=== PATIENT | male | born 1945 | race Caucasian/White ===

== ENCOUNTER 2017-09-26 23:19 | Inpatient (IN) | payer OTHER ==
[~2017-09-26] VITALS: Ht 177.8 cm; Wt 95.3 kg
[~2017-09-26 23:19] MED LIST: ACETAMINOPHEN325 M1 PO; AUGMENTIN 875875 MG PO; BACTRIM 400-801 EACH PO; CEFTIN 250 MG250 MG PO; CEFTIN500 MG PO; CENTRUM SILVER1 EAC2 PO; CIPRO500 M1 PO; CIPRO500 MG PO; CIPROFLOXACIN500 M1 PO; COZAAR 50 MG TA50 M1 PO; COZAAR100 MG PO; ENOXAPARIN40 MG/0.1 SUBQ; FEROSUL220 MG/5 M PO; FERROUS SULFATE PO; FLUCONAZOLE 10100 MG PO; GARLIC OIL1 EACH PO; GLUCOPHAGE1000 MG PO; IRON325 PO; KEFLEX500 MG PO; LANTUS SOL100 UNIT/1 SUBQ; LEVEMIR SUBQ; LOPRESSOR25 PO; METFORMIN HCL500 MG PO; METOCLOPRAM5 MG/5 ML PO; MULTIVITAMIN PO; NEPHROCAPS SOFT1 CAP PO; NOVOLOG100 UNIT/1; NOVOLOG100 UNIT/1 SUBQ; PREVACID 15 MG15 M4 PO; SODIUM BICARBO650 M3 PO; VITAMIN D1000 UNI1 PO; VITAMINC500 PO; ZYVOX600 MG PO
[2017-09-26 23:21] VITALS: BP 140/75
[2017-09-26 23:44] LABS: ABSOLUTE BASOPHILS 0.1 thou/uL (0.0-0.2); ABSOLUTE EOSINOPHILS 0.4 thou/uL (0.0-0.7); ABSOLUTE LYMPHOCYTES 1.4 thou/uL (0.8-5.3); ABSOLUTE MONOCYTES 0.5 thou/uL (0.0-1.2); ABSOLUTE NEUTROPHILS 4.2 thou/uL (1.6-8.1); EOSINOPHILS 6.4 %; HEMATOCRIT 30.7 % (42.0-52.0); LYMPHOCYTES 21.3 %; MCH 27.9 pg (26.0-34.0); MCHC 32.4 g/dL (28.0-37.0); MCV 86.2 fL (80.0-100.0); MONOCYTES 7.8 %; MPV 8.2 fl. (7.2-11.1); NUCLEATED RBCS 0 /100WBC; PLATELET COUNT* 245 thou/uL (150-400); POLYS 63.5 %; RBC 3.57 mil/uL (4.50-6.00); RDW-CV 12.6 % (10.5-14.5); WBC 6.6 thou/uL (4.0-11.0)
[2017-09-26 23:53] LABS: ANION GAP 9 mmol/L (7-16); BUN 53 mg/dL (7-18); CALCIUM 8.5 mg/dL (8.5-10.1); CHLORIDE 104 mmol/L (98-107); CO2 26 mmol/L (21-32); CREATININE 3.6 mg/dL (0.6-1.3); GLUCOSE 142 mg/dL (70-99); POTASSIUM 4.2 mmol/L (3.5-5.1); SODIUM 139 mmol/L (136-145)
[2017-09-27 00:04] LABS: ALBUMIN 3.7 g/dL (3.4-5.0); ALKALINE PHOSPHATASE 54 U/L (46-116); NT-PRO BRAIN NAT PEPTIDE 1133 pg/mL (<300); SGOT 8 U/L (15-37); SGPT 13 U/L (30-65); TOTAL BILIRUBIN 0.4 mg/dL (<0.1-1.0); TOTAL PROTEIN 7.4 g/dL (6.4-8.2); TROPONIN-I LEVEL <0.06 ng/mL (<0.06)
[2017-09-27 00:14] LABS: URINE BILIRUBIN NEGATIVE (Negative); URINE BLOOD 2+ (Negative); URINE CLARITY SL CLOUDY; URINE COLOR YELLOW; URINE GLUCOSE-RANDOM NEGATIVE (Negative); URINE KETONES NEGATIVE (Negative); URINE LEUKOCYTES-REFLEX 3+ (Negative); URINE NITRITE-REFLEX POSITIVE (Negative); URINE PROTEIN 2+ (Negative); URINE SPECIFIC GRAVITY 1.015 (1.005-1.030); URINE UROBILINOGEN 0.2 E.U./dl (0.2-1.0)
[2017-09-27 00:30] LABS: BACTERIA-REFLEX >30 Many /HPF (None Seen); CASTS None Seen /LPF (None Seen); CRYSTALS None Seen /LPF (None Seen); MUCUS 4-6 Moderate strn/LPF (None Seen); SQUAMOUS 0-3 Few /LPF (0-3); URINE WBC-REFLEX >25 Many /HPF (0-5); WBC CLUMPS Moderate (None Seen)
[2017-09-27 02:15] VITALS: BP 121/69
[2017-09-27 06:21] VITALS: BP 132/69
[2017-09-27 09:40] VITALS: BP 135/56
[2017-09-27 09:55] VITALS: BP 134/66
--- NOTE | 2017-09-27 10:00 | NUR ---
RECEIVED REPORT. PT TRANSFERRED TO ROOM 106 VIA BED. VSS. ADMISISON HISTORY AND ASSESSMENT COMPELTED CHARTED. PT ALERT AND ORIENTED X4. PT ON RA. IVF INFUSING PER ORDERS. PT DENIES ANY COMPLAINTS OF PIAN OR DISCOMFORT. PT ORIETNED TO ROOM AND CALL LIGHT. UROSTOMY IN PLACE TO DEPENDANT DRAINAGE. FALL RISK FORM SIGNED. CALL LIGHT IS WITHIN REACH. WILL CONTINUE TO MONITOR.
--- NOTE | 2017-09-27 14:50 | EKG ---
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1945 Requested By: Alondra Berrios Order Number: [id number] MD: Doe Gutiérrez Measurements Intervals [place] Rate: 76 P: 57 KS: 146 QRS: 15 QRSD: 89 T: 41 QT: 388 QTc: 437 Interpretive Statements Sinus rhythm Ventricular premature complex Probable left atrial enlargement Compared to ECG 05/25/2016 09:07:44 Ventricular premature complex(es) now present Left ventricular hypertrophy no longer present Early repolarization no longer present Electronically Signed On 09-27-2017 14:50:02 CDT by Doe Gutiérrez [email or web address] <ELECTRONICALLY SIGNED> By: Doe Gutiérrez MD, FACC 09/27/17 1450 [id number] Doe Gutiérrez MD, [facility] /EPI
[2017-09-27 16:00] VITALS: BP 147/63
--- NOTE | 2017-09-27 17:10 | NUR ---
MRI RESULTS GIVEN TO DR. BERTRAND AND DR. SPARKS. ORDERS RECEIVED TO START TELEMETRY, GIVE 325 ASPIRIN, LIPID PROFILE, ECHO, AND STAT MRA OF HEAD AND NECK. PT UPDATED ON PLAN OF CARE. NIH AND BEDSIDE SWALLOW STUDY COMPLETED CHARTED. PT'S PERSONAL BELONGINGS GATHERED AND SENT TO ROOM 218. REPORT GIVEN.
--- NOTE | 2017-09-27 17:44 | NUR ---
ASSUMED CARE OF PATIENT AT 1715 AFTER TRANSFER TO ROOM 218 FROM [facility]. PATIENT AWAKE, ALERT, AND ORIENTED APPROPRIATELY. THIS NURSE AGREES WITH ASSESSMENT CHARTED BY PREVIOUS NURSE. NIH = 0. MRA RESULTS CALLED TO DR. SPARKS. NO NEW ORDERS RECEIVED. PATIENT IS TO TRANSFER AND AMBULATE WITH ASSISTANCE FROM STAFF. USES CALL LIGHT APPROPRIATELY. DENIES NEEDS AT THIS TIME. CALL LIGHT WITHIN REACH. NURSING WILL CONTINUE TO MONITOR.
[2017-09-27 19:35] VITALS: BP 109/61
[2017-09-28 00:32] VITALS: BP 131/65
[2017-09-28 03:50] VITALS: BP 146/69
--- NOTE | 2017-09-28 04:46 | NUR ---
END SHIFT: PT RESTED WELL. NO COMPLAINTS- NO PAIN. NSR WITH PVC'S NOTED ON MONITOR. NIH IS 0. IVF INFUSING WITHOUT DIFFICUTLY. UROSTOMY BAG DRAINING WELL. VSS. ASSESSMENT UNCHANGED. SAFETY PRECAUTIONS IN PLACE. CALL LIGHT IN REACH. PERFORMED HOURLY ROUNDING. WILL CONT TO MONITOR.
[2017-09-28 04:59] LABS: HEMATOCRIT 28.6 % (42.0-52.0); HEMOGLOBIN 9.4 gm/dL (14.0-18.0); MCH 28.1 pg (26.0-34.0); MCHC 32.8 g/dL (28.0-37.0); MCV 85.7 fL (80.0-100.0); MPV 8.1 fl. (7.2-11.1); RBC 3.33 mil/uL (4.50-6.00); RDW-CV 12.5 % (10.5-14.5); WBC 6.2 thou/uL (4.0-11.0)
[2017-09-28 05:08] LABS: ALBUMIN 3.2 g/dL (3.4-5.0); ALKALINE PHOSPHATASE 43 U/L (46-116); ANION GAP 8 mmol/L (7-16); BUN 40 mg/dL (7-18); CALCIUM 8.1 mg/dL (8.5-10.1); CHLORIDE 109 mmol/L (98-107); CHOLESTEROL 159 mg/dL (<200); CO2 26 mmol/L (21-32); CREATININE 3.5 mg/dL (0.6-1.3); GLUCOSE 96 mg/dL (70-99); HDL CHOLESTEROL 37 mg/dL (>40); LDL CHOLESTEROL 101 mg/dL (<100); MAGNESIUM 2.6 mg/dL (1.8-2.4); POTASSIUM 4.3 mmol/L (3.5-5.1); SGOT 11 U/L (15-37); SGPT 15 U/L (30-65); SODIUM 143 mmol/L (136-145); TC:HDL 4.3 Ratio (Not establshd); TOTAL BILIRUBIN 0.4 mg/dL (<0.1-1.0); TOTAL PROTEIN 6.2 g/dL (6.4-8.2); TRIGLYCERIDE 106 mg/dL (<150); VLDL 21 mg/dL (<40)
[2017-09-28 05:18] LABS: SERUM ASSESSMENT Clear
[2017-09-28 08:15] VITALS: BP 158/67
--- NOTE | 2017-09-28 08:30 | NUR ---
RECEIVED REPORT. ASSUMED CARE OF PT AT 0730. VSS. CARDIAC MONITORING IN PLACE SR. AM ASSESSMENT AND VITALS COMPLETED CHARTED. PT ALERT AND ORIENTED X4. PT ON RA. IVF INFUSING PER ORDERS. PT DENIES ANY COMPLAINTS OF PAIN OR DISCOMFORT THIS AM. NIH COMPLETED CHARTED. UROSTOMY BAG IN PLACE TO DEPENDANT DRAINAGE. PT INFORMED OF PLAN OF CARE. PT HAS APPREHENSIONS OF TAKING MEDICATIONS PER HIS OWN PERSONAL THEORIES. PT PROVIDED WITH EDUCATION REGARDING ASPIRIN FOR STROKE PREVENTION. PT REPORTS WANTING TO DISCHARGE TODAY. INFORMED PT OF PLAN OF CARE PT COMMUNICATES UNDERSTANDING. CALL LIGHT IS WITHIN REACH. WILL CONTINUE TO MONITOR FOR DURATION OF SHIFT.
[2017-09-28 12:04] VITALS: BP 169/71
[2017-09-28] MEDS ORDERED: ASPIRIN325 PO (12:20)
[2017-09-28] MEDS ORDERED: CIPRO500 M1 PO (12:20)
[2017-09-28 12:24] VITALS: BP 169/71
[2017-09-28] MEDS ORDERED: CEFUROXIME500 MG PO (13:24)
--- NOTE | 2017-09-28 13:41 | NUR ---
DISCHARGE ORDERS RECEIVED AND PREPARED. IV AND CARDIAC MONITORING DISCONTINUED. PT AND SPOUSE EDUCATED ON DISCHARGE INSTRUCTIONS. ALL QUESTIONS AND CONCNERNS ANSWERED AT THIS TIME. PT GIVEN COPY OF DISCHARGE PAPERWORK AND STROKE EDUCAITON MATERIAL. SCRIPT CALLED INTO PT'S PHARMACY. PT AMBULATED OFF UNIT WITH NURSING STAFF. PT LEFT IN PRIVATE VEHICLE.
--- NOTE | 2017-09-28 17:57 | 2DMMODE ---
[place] [address] 2 D/M-MODE ECHOCARDIOGRAM Name: COTORILEY ZULMA Room: [address] IN [facility]#: [id number] Admission: 09/27/17 Attend Phys: Rasheed Kasper, Discharge: 09/28/17 Date of : 41 Date of Service: 09/28/17 1756 Report #: [id number] THIS REPORT FOR: //name// APPROVED REPORT Study performed: 09/28/2017 10:19:18 EXAM: Comprehensive 2D, Doppler, and color-flow Echocardiogram Patient Location: In-Patient Room #: 218 Status: routine BSA: 2.13 HR: 64 bpm BP: 158/67 mmHg Rhythm: NSR Other Information Study Quality: Good Indications CVA/TIA Echo Enhancing Agent Indication: Rule out Shunt Agent(s) / Amount(s) Used: Agitated Saline 10 cc 2D Dimensions LVEF(%): 60.77 (>50%) IVSd: 14.51 (7-11mm) LVOT Diam: 22.47 (18-24mm) LVDd: 40.61 mm PWd: 11.81 (7-11mm) Ascending Ao: 35.92 (22-36mm) LVDs: 27.58 (25-40mm) Aortic Root: 33.08 mm Connors's LVEF: 60.77 % Volumes Left Atrial Volume (Systole) LA ESV Index: 36.60 mL/m2 Aortic Valve AoV Peak Ovi.: 1.41 m/s AO Peak Gr.: 7.90 mmHg LVOT Max P.07 mmHg AO Mean Gr.: 4.05 mmHg LVOT Mean P.41 mmHg LVOT Max V: 0.88 m/s AO V2 VTI: 28.70 cm LVOT Mean V: 0.54 m/[place] [address] 2 D/M-MODE ECHOCARDIOGRAM Name: CHICARILEY MIKE Room: [address] IN .R.#: [id number] Admission: 09/27/17 Attend Phys: Rasheed Kasper, Discharge: 09/28/17 Date of : 41 Date of Service: 09/28/17 1756 Report #: [id number] LEIGH (VTI): 2.59 cm2 LVOT V1 VTI: 18.77 cm Mitral Valve E/A Ratio: 0.76 MV Decel. Time: 198.91 ms MV E Max Ovi.: 0.93 m/s MV PHT: 57.68 ms MVA (PHT): 3.81 cm2 TDI E/Lateral E': 6.64 E/Medial E': 10.33 Medial E' Ovi.: 0.09 m/s Lateral E' Ovi.: 0.14 m/s Pulmonary Valve PV Peak Ovi.: 0.98 m/s PV Peak Gr.: 3.86 mmHg Tricuspid Valve TR Peak Gr.: 24.19 mmHg RVSP: 29.00 mmHg Left Ventricle The left ventricle is normal size. There is normal LV segmental wall motion. Mild concentric left ventricular hypertrophy. Left ventricular systolic function is normal. The left ventricular ejection fraction is within the normal range. LVEF is 55-60%. Grade I - abnormal relaxation pattern. Right Ventricle The right ventricle is normal size. The right ventricular systolic function is normal. Atria Left atrium is mildly dilated. Interatrial septum is intact without evidence of ASD or PFO. The right atrium size is normal. Aortic Valve Mild aortic valve sclerosis. No aortic regurgitation is present. There is no aortic valvular stenosis. Mitral Valve There is mitral annular calcification. Mild mitral regurgitation. No evidence of mitral valve stenosis. Tricuspid Valve The tricuspid valve is normal in structure. Mild tricuspid regurgitation. The RVSP is 35_ [place] [address] 2 D/M-MODE ECHOCARDIOGRAM Name: CHICARILEY ZULMA Room: [address] IN M.R.#: [id number] Admission: 09/27/17 Attend Phys: Rasheed Kasper, Discharge: 09/28/17 Date of : 41 Date of Service: 09/28/17 1756 Report #: [id number] Pulmonic Valve The pulmonary valve is normal in structure. Trace pulmonic regurgitation. Great Vessels The aortic root is normal in size. The inferior vena cava is not well visualized. Pericardium There is no pericardial effusion. <Conclusion> Interatrial septum is intact without evidence of ASD or PFO. Mild concentric left ventricular hypertrophy. LVEF is 55-60%. Left atrium is mildly dilated. Mild aortic valve sclerosis. Mild mitral regurgitation. <ELECTRONICALLY SIGNED> By: Nick Delaney MD, FACC 09/28/171755 55 55 Nick Delaney MD, FACC /INF
--- NOTE | 2017-10-04 13:48 | CON ---
[address] [address] CONSULTATION Name: COTORILEY ZULMA Room: [address] IN M.R.#: [id number] Admission: 09/27/17 Attend Phys: Rasheed Kasper MD Discharge: 09/28/17 Date of : 41 Report #: [id number] THIS REPORT FOR: //name// CC: Rasheed ALMEIDA Physician staff DATE OF SERVICE: 09/27/2017 HISTORY OF PRESENT ILLNESS: This is a 71-year-old male patient who was evaluated for a stroke. The patient provides some history and I talked to the nurses looking after this patient and reviewed the notes. He is having weakness for several days, but duration may be as long as 2 weeks. He indicates that it has become worse. He described it as severe. It may be somewhat worse with movement of the neck. It happened spontaneously without any trauma. REVIEW OF SYSTEMS: Indicate that he gets his cholesterol checked every 3 months. He has somewhat of an unusual theory that cholesterol is not the cause of the problem, but the calcium is. He indicates he has done a lot of research on the Internet on that. He also takes multiple diet supplements. He has some neuropathy, which has caused him problem and he has been taking multiple diet supplements since then. He indicated that once he had a prostate surgery, he had some complication from that and he was in coma for 2 months. He believes he has suffered some neuropathy from that. He thinks his numbness is better, but is not as good as it would like to be. He also indicate that he recently had a urinary tract infection. He had this kind of dizziness before. He has taken some medication, but not on a regular basis. He had coronary artery disease and angioplasty in the past. He had eye surgery in the past. He does have a history of diabetes as per record. I carried out 14-point review of system with this patient and this was his relevant 14-point review of system. He does have some other history that he takes things in unusual fashion. He sometime tried to induce ketoacidosis. This was his relevant 14-point review of systems. PAST MEDICAL HISTORY: According to him is negative for stroke. FAMILY HISTORY: Negative for early age stroke. SOCIAL HISTORY: He does multiple things which I have summarized above. He is a former smoker, but does not drink any alcohol on a regular basis. PHYSICAL EXAMINATION: Indicate that the patient is alert, responsive. His speech, concentration, fund of knowledge and memory is at his baseline. His cranial nerve examination 2-12 looks unremarkable. His strength, sensation, reflexes and tone is symmetrical. He has no cerebellar sign. There is no meningeal sign. There is no carotid bruit. I could not look at the patient's fundus. He is a well-built karlos who does not have [place] [address] CONSULTATION Name: RILEY COTO Room: [address] IN .R.#: [id number] Admission: 09/27/17 Attend Phys: Rasheed Kasper MD Discharge: 09/28/17 Date of : 41 Report #: [id number] eyes, ears and face. His vision and hearing looks adequate. He has no thyroid mass. His pulses are difficult to feel, but that is his baseline. He does not have any edema, cyanosis or jaundice. His heart examination is unremarkable. He has no respiratory difficulty or rhonchi. Blood pressure is 147/63, respirations 16, pulse 71, temperature is 98.8. LABORATORY DATA: His white count is 6.6. His creatinine is 3.6. His GFR is only 17. He did have an MRI of the brain and that was reviewed and did have a small stroke. Vitamin B12 and TSH is normal. IMPRESSION: This patient's clinical presentation is consistent with a cerebrovascular accident, which is demonstrated on MRI. That is a brainstem cerebrovascular accident, which can cause dizziness. His rest of the workup looks mostly unremarkable. He also has a neuropathy, but that is old. His cholesterol has been ordered, we will see what that shows, but he has his own theory, so I am not sure whether he will take it or not, we can talk to him tomorrow. RECOMMENDATION: 1. He is already on aspirin. 2. He is not sure about statin and he really does not want to do that because he has his own theory, but we will talk to him. He is stable, but I do not think anything else needs to be done at this stage. We will just see what the echocardiogram show and get him evaluated by PT, OT tomorrow and see how he does with it. That consultation has already put in. <ELECTRONICALLY SIGNED> By: Kaleb Hoang MD 10/04/17 1348 [id number] Hoang MD /nt
== END 2017-09-28 14:09 | disposition home or self-care (01) | DRG 65 ==
LOC: M.ERS 23:19 → M.ORTHSURG 09-27 00:51 → M.TBA-ER 09-27 00:51 → M.ORTHSURG 09-27 09:53 → M.2W 09-27 17:14
PROVIDERS: Emergency Medicine; Internal Medicine; ADMIT Internal Medicine
DX: I63.9 Cerebral infarction, unspecified (principal); N39.0 Urinary tract infection, site not specified; I12.0 Hypertensive chronic kidney disease with stage 5 chronic kidney disease or end stage renal disease; N18.5 Chronic kidney disease, stage 5; G62.9 Polyneuropathy, unspecified; I25.10 Atherosclerotic heart disease of native coronary artery without angina pectoris; E11.22 Type 2 diabetes mellitus with diabetic chronic kidney disease; Z90.79 Acquired absence of other genital organ(s); Z95.1 Presence of aortocoronary bypass graft; Z90.49 Acquired absence of other specified parts of digestive tract; Z85.46 Personal history of malignant neoplasm of prostate; Z98.61 Coronary angioplasty status; Z79.899 Other long term (current) drug therapy; Z79.4 Long term (current) use of insulin; Z88.2 Allergy status to sulfonamides; Z88.8 Allergy status to other drugs, medicaments and biological substances; Z87.891 Personal history of nicotine dependence

== ENCOUNTER 2017-10-13 11:38 | Emergency (ER) | payer OTHER ==
[~2017-10-13] VITALS: Ht 180.3 cm; Wt 88.5 kg
[~2017-10-13 11:38] MED LIST changes: +ASPIRIN325 PO; +CEFUROXIME500 MG PO
[2017-10-13 12:16] LABS: ABSOLUTE BASOPHILS 0.1 thou/uL (0.0-0.2); ABSOLUTE EOSINOPHILS 0.5 thou/uL (0.0-0.7); ABSOLUTE LYMPHOCYTES 1.2 thou/uL (0.8-5.3); ABSOLUTE MONOCYTES 0.6 thou/uL (0.0-1.2); ABSOLUTE NEUTROPHILS 4.2 thou/uL (1.6-8.1); BASOPHILS 1.5 %; EOSINOPHILS 8.2 %; HEMATOCRIT 30.7 % (42.0-52.0); LYMPHOCYTES 18.2 %; MCH 27.8 pg (26.0-34.0); MCHC 32.7 g/dL (28.0-37.0); MCV 85.1 fL (80.0-100.0); MONOCYTES 8.8 %; MPV 7.7 fl. (7.2-11.1); NUCLEATED RBCS 0 /100WBC; PLATELET COUNT* 263 thou/uL (150-400); POLYS 63.3 %; RBC 3.61 mil/uL (4.50-6.00); RDW-CV 12.7 % (10.5-14.5); WBC 6.6 thou/uL (4.0-11.0)
[2017-10-13 12:23] LABS: CREATININE 3.2 mg/dL (0.6-1.3); POTASSIUM 4.7 mmol/L (3.5-5.1)
[2017-10-13 12:28] LABS: ALBUMIN 3.5 g/dL (3.4-5.0); TOTAL BILIRUBIN 0.3 mg/dL (<0.1-1.0); TOTAL PROTEIN 7.3 g/dL (6.4-8.2)
[2017-10-13 13:13] LABS: URINE BILIRUBIN NEGATIVE (Negative); URINE BLOOD 3+ (Negative); URINE CLARITY CLEAR; URINE COLOR YELLOW; URINE GLUCOSE-RANDOM NEGATIVE (Negative); URINE KETONES NEGATIVE (Negative); URINE PROTEIN 2+ (Negative); URINE SPECIFIC GRAVITY 1.015 (1.005-1.030); URINE UROBILINOGEN 0.2 E.U./dl (0.2-1.0)
[2017-10-13 13:16] LABS: URINE LEUKOCYTES-REFLEX 3+ (Negative); URINE NITRITE-REFLEX POSITIVE (Negative)
[2017-10-13 13:26] LABS: BACTERIA-REFLEX 1-9 Few /HPF (None Seen); CASTS None Seen /LPF (None Seen); MUCUS None Seen strn/LPF (None Seen); SQUAMOUS 0-3 Few /LPF (0-3); URINE RBC >20 Many /HPF (0-2); URINE WBC-REFLEX 6-15 Few /HPF (0-5)
[2017-10-13 13:27] LABS: CRYSTALS None Seen /LPF (None Seen)
[2017-10-13 13:47] VITALS: BP 146/94
== END 2017-10-13 13:48 | disposition home or self-care (01) ==
LOC: M.ERS 11:38
PROVIDERS: Emergency Medicine
DX: R31.9 Hematuria, unspecified (principal); E11.9 Type 2 diabetes mellitus without complications; Z95.5 Presence of coronary angioplasty implant and graft; Z88.1 Allergy status to other antibiotic agents; Z88.8 Allergy status to other drugs, medicaments and biological substances; Z85.46 Personal history of malignant neoplasm of prostate; Z90.49 Acquired absence of other specified parts of digestive tract

== ENCOUNTER 2018-01-04 11:13 | Emergency (ER) | payer OTHER ==
[~2018-01-04] VITALS: Ht 177.8 cm; Wt 86.2 kg
[2018-01-04] MEDS ORDERED: AMLODIPINE BESY10 MG PO (11:28)
[2018-01-04] MEDS ORDERED: SODIUM BICARBO650 M3 PO (11:28)
[2018-01-04 11:50] LABS: URINE BILIRUBIN NEGATIVE (Negative); URINE BLOOD 3+ (Negative); URINE CLARITY SL CLOUDY; URINE COLOR STRAW; URINE GLUCOSE-RANDOM NEGATIVE (Negative); URINE KETONES NEGATIVE (Negative); URINE NITRITE-REFLEX NEGATIVE (Negative); URINE PROTEIN 2+ (Negative); URINE SPECIFIC GRAVITY 1.015 (1.005-1.030); URINE UROBILINOGEN 0.2 E.U./dl (0.2-1.0)
[2018-01-04 11:53] LABS: URINE LEUKOCYTES-REFLEX 3+ (Negative)
[2018-01-04] MEDS ORDERED: KEFLEX500 M1 PO (12:11)
[2018-01-04 12:12] LABS: SQUAMOUS NONE SEEN /LPF (0-3); URINE RBC >20 Many /HPF (0-2); URINE WBC-REFLEX >25 Many /HPF (0-5); WBC CLUMPS Few (None Seen)
[2018-01-04 12:13] LABS: BACTERIA-REFLEX 1-9 Few /HPF (None Seen); CASTS None Seen /LPF (None Seen); CRYSTALS None Seen /LPF (None Seen); MUCUS None Seen strn/LPF (None Seen)
[2018-01-04 12:27] VITALS: BP 167/96
== END 2018-01-04 12:28 | disposition home or self-care (01) ==
LOC: M.ERS 11:13
PROVIDERS: Emergency Medicine Emergency Medical Services
DX: N39.0 Urinary tract infection, site not specified (principal); E11.9 Type 2 diabetes mellitus without complications; Z88.1 Allergy status to other antibiotic agents; Z88.2 Allergy status to sulfonamides; Z88.8 Allergy status to other drugs, medicaments and biological substances; Z95.1 Presence of aortocoronary bypass graft; Z90.49 Acquired absence of other specified parts of digestive tract; Z95.5 Presence of coronary angioplasty implant and graft; Z85.46 Personal history of malignant neoplasm of prostate

== ENCOUNTER 2018-10-18 12:45 | Emergency (ER) | payer OTHER ==
[~2018-10-18] VITALS: Ht 177.8 cm; Wt 86.2 kg
[~2018-10-18 12:45] MED LIST changes: +AMLODIPINE BESY10 MG PO; +KEFLEX500 M1 PO
[2018-10-18] MEDS ORDERED: [UNRECOGNIZED DRUG - OTHER] (13:01)
[2018-10-18] MEDS ORDERED: KAPSPARGO SPRIN25 MG PO (13:01)
[2018-10-18] MEDS ORDERED: GINGER250 MG PO (13:02)
[2018-10-18 13:29] LABS: URINE BILIRUBIN NEGATIVE (Negative); URINE BLOOD 2+ (Negative); URINE CLARITY CLEAR; URINE COLOR YELLOW; URINE GLUCOSE-RANDOM NEGATIVE (Negative); URINE KETONES NEGATIVE (Negative); URINE PROTEIN 2+ (Negative); URINE UROBILINOGEN 0.2 E.U./dl (0.2-1.0)
[2018-10-18 13:37] LABS: ABSOLUTE BASOPHILS 0.1 thou/uL (0.0-0.2); ABSOLUTE EOSINOPHILS 0.3 thou/uL (0.0-0.7); ABSOLUTE MONOCYTES 0.6 thou/uL (0.0-1.2); ABSOLUTE NEUTROPHILS 4.3 thou/uL (1.6-8.1); EOSINOPHILS 4.3 %; HEMATOCRIT 32.2 % (42.0-52.0); HEMOGLOBIN 10.3 gm/dL (14.0-18.0); LYMPHOCYTES 16.7 %; MCH 28.3 pg (26.0-34.0); MCV 88.4 fL (80.0-100.0); MPV 8.1 fl. (7.2-11.1); NUCLEATED RBCS 0 /100WBC; PLATELET COUNT* 276 thou/uL (150-400); RBC 3.65 mil/uL (4.50-6.00); RDW-CV 13.2 % (10.5-14.5); URINE LEUKOCYTES-REFLEX 3+ (Negative); URINE NITRITE-REFLEX POSITIVE (Negative); WBC 6.3 thou/uL (4.0-11.0)
[2018-10-18 13:40] LABS: CALCIUM 8.2 mg/dL (8.5-10.1); CREATININE 3.3 mg/dL (0.6-1.3); POTASSIUM 4.4 mmol/L (3.5-5.1)
[2018-10-18 13:43] LABS: SQUAMOUS NONE SEEN /LPF (0-3); URINE WBC-REFLEX >25 Many /HPF (0-5); WBC CLUMPS Few (None Seen)
[2018-10-18 13:44] LABS: BACTERIA-REFLEX >30 Many /HPF (None Seen); CASTS None Seen /LPF (None Seen); CRYSTALS None Seen /LPF (None Seen); MUCUS None Seen strn/LPF (None Seen); URINE RBC 0-2 Rare /HPF (0-2)
[2018-10-18 13:45] LABS: ALBUMIN 3.4 g/dL (3.4-5.0); TOTAL BILIRUBIN 0.3 mg/dL (<0.1-1.0); TOTAL PROTEIN 7.2 g/dL (6.4-8.2)
[2018-10-18] MEDS ORDERED: KEFLEX500 M1 PO (15:01)
[2018-10-18 15:19] VITALS: BP 139/67
== END 2018-10-18 15:19 | disposition home or self-care (01) ==
LOC: M.ERS 12:45
PROVIDERS: Physician Assistant
DX: N39.0 Urinary tract infection, site not specified (principal); E11.9 Type 2 diabetes mellitus without complications; Z88.2 Allergy status to sulfonamides; Z88.8 Allergy status to other drugs, medicaments and biological substances; Z88.1 Allergy status to other antibiotic agents; Z85.46 Personal history of malignant neoplasm of prostate; Z90.49 Acquired absence of other specified parts of digestive tract; Z90.79 Acquired absence of other genital organ(s); Z95.5 Presence of coronary angioplasty implant and graft

== ENCOUNTER 2018-11-06 11:07 | Emergency (ER) | payer OTHER ==
[~2018-11-06] VITALS: Ht 177.8 cm; Wt 86.2 kg
[~2018-11-06 11:07] MED LIST changes: +GINGER250 MG PO; +KAPSPARGO SPRIN25 MG PO; +[UNRECOGNIZED DRUG - OTHER]
[2018-11-06 11:59] LABS: URINE BILIRUBIN NEGATIVE (Negative); URINE BLOOD 1+ (Negative); URINE CLARITY CLEAR; URINE COLOR YELLOW; URINE GLUCOSE-RANDOM NEGATIVE (Negative); URINE KETONES NEGATIVE (Negative); URINE LEUKOCYTES-REFLEX 3+ (Negative); URINE NITRITE-REFLEX POSITIVE (Negative); URINE PROTEIN 2+ (Negative); URINE UROBILINOGEN 0.2 E.U./dl (0.2-1.0)
[2018-11-06 12:03] LABS: ABSOLUTE BASOPHILS 0.1 thou/uL (0.0-0.2); ABSOLUTE EOSINOPHILS 0.4 thou/uL (0.0-0.7); ABSOLUTE MONOCYTES 0.5 thou/uL (0.0-1.2); ABSOLUTE NEUTROPHILS 4.2 thou/uL (1.6-8.1); BASOPHILS 1.1 %; EOSINOPHILS 6.6 %; HEMATOCRIT 33.1 % (42.0-52.0); HEMOGLOBIN 10.6 gm/dL (14.0-18.0); LYMPHOCYTES 16.3 %; MCH 28.4 pg (26.0-34.0); MCV 88.9 fL (80.0-100.0); MONOCYTES 7.8 %; MPV 7.5 fl. (7.2-11.1); NUCLEATED RBCS 0 /100WBC; PLATELET COUNT* 286 thou/uL (150-400); POLYS 68.2 %; RBC 3.73 mil/uL (4.50-6.00); RDW-CV 13.9 % (10.5-14.5); WBC 6.1 thou/uL (4.0-11.0)
[2018-11-06 12:07] LABS: CALCIUM 8.6 mg/dL (8.5-10.1); CREATININE 3.2 mg/dL (0.6-1.3); POTASSIUM 4.6 mmol/L (3.5-5.1)
[2018-11-06 12:09] LABS: CASTS None Seen /LPF (None Seen); CRYSTALS None Seen /LPF (None Seen); MUCUS 0-3 Light strn/LPF (None Seen); SQUAMOUS 0-3 Few /LPF (0-3); URINE RBC 0-2 Rare /HPF (0-2)
[2018-11-06 12:12] LABS: ALBUMIN 3.7 g/dL (3.4-5.0); TOTAL BILIRUBIN 0.4 mg/dL (<0.1-1.0); TOTAL PROTEIN 7.4 g/dL (6.4-8.2)
[2018-11-06] MEDS ORDERED: AUGMENTIN 875-1 EACH PO (12:28)
[2018-11-06 12:44] VITALS: BP 159/76
== END 2018-11-06 12:44 | disposition home or self-care (01) ==
LOC: M.ERS 11:07
PROVIDERS: Nurse Practitioner Family
DX: N39.0 Urinary tract infection, site not specified (principal); E11.9 Type 2 diabetes mellitus without complications; Z88.1 Allergy status to other antibiotic agents; Z88.2 Allergy status to sulfonamides; Z88.8 Allergy status to other drugs, medicaments and biological substances; Z95.1 Presence of aortocoronary bypass graft; Z85.46 Personal history of malignant neoplasm of prostate; Z90.49 Acquired absence of other specified parts of digestive tract; Z95.5 Presence of coronary angioplasty implant and graft

== ENCOUNTER 2018-11-07 12:20 | Emergency (ER) | payer OTHER ==
[~2018-11-07] VITALS: Ht 175.3 cm; Wt 90.7 kg
[~2018-11-07 12:20] MED LIST changes: +AUGMENTIN 875-1 EACH PO
[2018-11-07 12:51] LABS: ABSOLUTE BASOPHILS 0.1 thou/uL (0.0-0.2); ABSOLUTE EOSINOPHILS 0.4 thou/uL (0.0-0.7); ABSOLUTE LYMPHOCYTES 1.2 thou/uL (0.8-5.3); ABSOLUTE MONOCYTES 0.5 thou/uL (0.0-1.2); BASOPHILS 1.1 %; EOSINOPHILS 7.2 %; HEMATOCRIT 33.5 % (42.0-52.0); HEMOGLOBIN 10.5 gm/dL (14.0-18.0); LYMPHOCYTES 19.4 %; MCHC 31.3 g/dL (28.0-37.0); MCV 89.4 fL (80.0-100.0); MONOCYTES 7.7 %; MPV 7.4 fl. (7.2-11.1); NUCLEATED RBCS 0 /100WBC; PLATELET COUNT* 284 thou/uL (150-400); POLYS 64.6 %; RBC 3.75 mil/uL (4.50-6.00); RDW-CV 13.8 % (10.5-14.5); WBC 6.2 thou/uL (4.0-11.0)
[2018-11-07 13:28] LABS: CALCIUM 9.1 mg/dL (8.5-10.1); CREATININE 3.2 mg/dL (0.6-1.3); POTASSIUM 4.5 mmol/L (3.5-5.1)
[2018-11-07 13:32] LABS: ALBUMIN 3.5 g/dL (3.4-5.0); TOTAL BILIRUBIN 0.3 mg/dL (<0.1-1.0); TOTAL PROTEIN 7.4 g/dL (6.4-8.2)
[2018-11-07 14:52] VITALS: BP 170/89
== END 2018-11-07 14:48 | disposition home or self-care (01) ==
LOC: M.ERS 12:20
PROVIDERS: Family Medicine
DX: R10.32 Left lower quadrant pain (principal); E11.9 Type 2 diabetes mellitus without complications; Z88.1 Allergy status to other antibiotic agents; Z88.2 Allergy status to sulfonamides; Z88.8 Allergy status to other drugs, medicaments and biological substances; Z95.1 Presence of aortocoronary bypass graft; Z85.46 Personal history of malignant neoplasm of prostate; Z90.49 Acquired absence of other specified parts of digestive tract; Z95.5 Presence of coronary angioplasty implant and graft

== ENCOUNTER 2019-09-13 16:55 | Inpatient (IN) | payer MEDICARE, OTHER ==
[~2019-09-13] VITALS: Ht 177.8 cm; Wt 91.0 kg
[~2019-09-13 16:55] MED LIST changes: -NEPHROCAPS SOFT1 CAP PO; +VIRT-CAPS SOFTGE1 MG PO; -VITAMIN D1000 UNI1 PO; +VITAMIN D3100 MCG PO
[2019-09-13 17:06] VITALS: BP 155/70
[2019-09-13 17:38] LABS: ABSOLUTE BASOPHILS 0.1 thou/uL (0.0-0.2); ABSOLUTE EOSINOPHILS 0.2 thou/uL (0.0-0.7); ABSOLUTE MONOCYTES 0.7 thou/uL (0.0-1.2); ABSOLUTE NEUTROPHILS 8.2 thou/uL (1.6-8.1); BASOPHILS 0.9 %; EOSINOPHILS 1.6 %; HEMOGLOBIN 8.1 gm/dL (14.0-18.0); MCH 28.8 pg (26.0-34.0); MCHC 32.5 g/dL (28.0-37.0); MCV 88.7 fL (80.0-100.0); MONOCYTES 6.5 %; MPV 6.9 fl. (7.2-11.1); NUCLEATED RBCS 0 /100WBC; PLATELET COUNT* 397 thou/uL (150-400); RBC 2.82 mil/uL (4.50-6.00); RDW-CV 15.3 % (10.5-14.5); URINE BILIRUBIN NEGATIVE (Negative); URINE BLOOD 2+ (Negative); URINE GLUCOSE-RANDOM NEGATIVE (Negative); URINE KETONES NEGATIVE (Negative); URINE NITRITE-REFLEX NEGATIVE (Negative); URINE PROTEIN 2+ (Negative); URINE SPECIFIC GRAVITY 1.015 (1.005-1.030); URINE UROBILINOGEN 0.2 E.U./dl (0.2-1.0); WBC 10.1 thou/uL (4.0-11.0)
[2019-09-13 17:39] LABS: SQUAMOUS 0-3 Few /LPF (0-3); URINE CLARITY HAZY; URINE COLOR YELLOW; URINE LEUKOCYTES-REFLEX 3+ (Negative)
[2019-09-13 17:40] LABS: BACTERIA-REFLEX >30 Many /HPF (None Seen); CASTS None Seen /LPF (None Seen); CRYSTALS None Seen /LPF (None Seen); MUCUS 0-3 Light strn/LPF (None Seen); URINE RBC >20 Many /HPF (0-2); URINE WBC-REFLEX >25 Many /HPF (0-5)
[2019-09-13 17:45] LABS: CALCIUM 8.3 mg/dL (8.5-10.1); CREATININE 6.9 mg/dL (0.6-1.3); POTASSIUM 3.5 mmol/L (3.5-5.1)
[2019-09-13 17:49] LABS: ALBUMIN 3.2 g/dL (3.4-5.0); TOTAL BILIRUBIN 0.3 mg/dL (<0.1-1.0); TOTAL PROTEIN 7.5 g/dL (6.4-8.2)
[2019-09-13] MEDS ORDERED: NORVASC10 MG PO (18:29)
[2019-09-13 19:18] VITALS: BP 140/70
[2019-09-13 20:00] VITALS: BP 171/72
--- NOTE | 2019-09-14 04:40 | NUR ---
ASSUMED PATIENT CARE AT 1900. ALERT AND ORIENTED TIMES FOUR. NO COMPLAINTS OF PAIN OR DISCOMFORT NOTED. IV IN PLACE. ILEOSTOMY TO MARQUEZ DRAIN BAG. BRACELET AND BROOCH MAKER AND HOURLY ROUNDING COMPLETED CHARTED.
[2019-09-14 04:41] LABS: HEMATOCRIT 23.3 % (42.0-52.0); HEMOGLOBIN 7.5 gm/dL (14.0-18.0); MCHC 32.4 g/dL (28.0-37.0); MCV 89.5 fL (80.0-100.0); MPV 6.7 fl. (7.2-11.1); RBC 2.6 mil/uL (4.50-6.00)
[2019-09-14 04:50] LABS: SALICYLATE < 2.8 mg/dL (2.8-20.0)
[2019-09-14 05:03] LABS: ALBUMIN 2.9 g/dL (3.4-5.0); CALCIUM 7.8 mg/dL (8.5-10.1); CREATININE 6.6 mg/dL (0.6-1.3); PHOSPHORUS* 6.2 mg/dL (2.5-4.9); POTASSIUM 3.3 mmol/L (3.5-5.1); TOTAL BILIRUBIN 0.4 mg/dL (<0.1-1.0); TOTAL PROTEIN 6.9 g/dL (6.4-8.2)
[2019-09-14 05:22] LABS: ALCOHOL < 10 mg/dL (<10)
[2019-09-14 08:00] VITALS: BP 160/75
[2019-09-14 12:00] VITALS: BP 138/62
--- NOTE | 2019-09-14 13:27 | NUR ---
CM spoke with Pt's via phone. Pt is A&O. Independent. No DME. Hx of . Hx of acute rehab at [facility] in 2013. Per , Pt has gotten weaker over the past few weeks, per , Pt gets several UTIs a year. Updated Dr on findings from conversation with . Goal is home at [place]. Following
[2019-09-14 16:00] VITALS: BP 150/67
--- NOTE | 2019-09-14 16:37 | NUR ---
PT RESTING IN BED THROUGHOUT SHIFT.PT CALLS APPROPRIATELY FOR ASSIST. IVF INFUSING. PT PARTICULAR ABOUT DIETARY CHOICES. RENAL CONSULT TODAY. UROSTOMY DRAINING CLOUDY YELLOW FOUL URINE.
[2019-09-14 20:00] VITALS: BP 157/74
[2019-09-14 23:51] VITALS: BP 154/66
[2019-09-15 04:53] LABS: HEMATOCRIT 20.8 % (42.0-52.0); MCH 28.6 pg (26.0-34.0); MCHC 32.6 g/dL (28.0-37.0); MCV 87.5 fL (80.0-100.0); MPV 6.7 fl. (7.2-11.1); RBC 2.38 mil/uL (4.50-6.00); RDW-CV 14.8 % (10.5-14.5); WBC 7.8 thou/uL (4.0-11.0)
[2019-09-15 05:00] LABS: HEMOGLOBIN 6.8 gm/dL (14.0-18.0)
[2019-09-15 05:09] LABS: ALBUMIN 2.8 g/dL (3.4-5.0); CALCIUM 7.5 mg/dL (8.5-10.1); CREATININE 6.4 mg/dL (0.6-1.3); MAGNESIUM 1.7 mg/dL (1.8-2.4); PHOSPHORUS* 5.9 mg/dL (2.5-4.9)
[2019-09-15 05:16] LABS: POTASSIUM 2.9 mmol/L (3.5-5.1)
--- NOTE | 2019-09-15 07:49 | NUR ---
ASSUMED PATIENT CARE AT 1900. ASSESSMENT COMPLETED CHARTED. PATIENT IS NSR ON THE MONITOR. PATIENT HAD CRITICAL HEMOGLOBIN OF 6.8, PHYSICIAN NOTIFIED, NEW ORDERS RECEIVED AND FOLLOWED, CONSENT SIGNED FOR BLOOD, SEE CHART FOR DETAILS. WAITING FOR BLOOD TO BE READY. PATIENT HAD CRITICAL POTASSIUM LAB, PHYSICIAN NOTIFIED, NEW ORDERS RECEIVED AND FOLLOWED, SEE EMAR FOR DETAILS. HOURY ROUNDING IN PLACE FOR PATIENT SAFETY CLWR.
[2019-09-15 08:00] VITALS: BP 146/61
[2019-09-15 10:35] VITALS: BP 157/69; BP 164/76; BP 172/75; BP 178/72; BP 184/74
--- NOTE | 2019-09-15 10:36 | CON ---
[address] [address] CONSULTATION Name: RILEY COTO Room: [address] IN M.R.#: [id number] Admission: 09/13/19 Attend Phys: Carolyne Hopper Discharge: Date of : 41 Report #: [id number] THIS REPORT FOR: //name// cc: Lisy Dejesus MD, Madhavi MD ~ THIS REPORT FOR: //name// CC: Carolyne Campos DATE OF SERVICE: 09/14/2019 INFECTIOUS DISEASE CONSULTATION ATTENDING PHYSICIAN: Carolyne Mejia MD REASON FOR EVALUATION: Complicated urinary tract infection, likely due to multiple resistant organisms. HISTORY OF PRESENT ILLNESS: Chart reviewed, the patient examined. This is a 73-year-old known to myself, who I had seen him several years. He has got a complicated previous history of prostate cancer, treated with prostatectomy. There was a complication related to the surgery. He was left with some chronic renal insufficiency. He has got a left-sided urostomy as well. He gets frequent urinary tract infections, he notes he is in the [facility]. He has more recently been to [facility] as his primary care provider. Over the course of the last several days, he has had progressive weakness, per spouse. It is not clear that he had fevers. He developed some nausea and have an episode of emesis. On evaluation, urinalysis did show marked pyuria, bacteriuria, found to have a creatinine elevated at 6.9. On 10/2018, it was 3.2. Lactic acid 0.5. Urine and blood cultures in progress. Empirically dosed with ceftriaxone. At this point, he is not overtly toxic. He is quite lucid. Denies significant pulmonary-related complaints, although he did admit to some described as severe indigestion as well. ALLERGIES: LISTED TO ATORVASTATIN, BACTRIM, CIPRO, METFORMIN. MEDICATIONS: Include amlodipine, metoprolol, multivitamin, cholecalciferol, ceftriaxone, folic acid, ascorbic acid. 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 [address] CONSULTATION Name: RILEY COTO Room: [address]#: [id number] Admission: 09/13/19 Attend Phys: Carolyne Hopper Discharge: Date of : 41 Report #: [id number] SOCIAL HISTORY: Nonsmoker, no ethanol, no illicit drug use. FAMILY HISTORY: Noncontributory. REVIEW OF SYSTEMS: Otherwise, unremarkable 10-point review of systems with exception of the above. PHYSICAL EXAMINATION: GENERAL: Pleasant, alert, cooperative, appropriate. He is in mild distress. He is oriented, appears somewhat undernourished. VITAL SIGNS: Temperature 97.4, pulse 85, respirations 19, blood pressure 160/75. SKIN: Warm, dry, no rashes. HEENT: Normocephalic. Extraocular muscles intact. NECK: Supple. LUNGS: Somewhat diminished, few scattered crackles at the bases. HEART: Regular, may have soft systolic murmur. ABDOMEN: He has got the ostomy on the left side anteriorly. There is not any abdominal wall inflammation noted. It is not overtly tender. There are no peritoneal signs. GENITOURINARY: Deferred. RECTAL: Deferred. LABORATORY DATA: From this morning, sodium 140, potassium 3.3, chloride 111, bicarb is low at 10, anion gap of 19, BUN and creatinine 117 and 6.6, glucose of 119. Albumin of 2.9, total protein 6.9. LFTs unremarkable. Estimated GFR 8. CBC: White count 9.0, H and H 7.5 and 23.3, platelets of 351. TSH of 3.279, iron of 124. Lactic acid 0.5. ASSESSMENT AND PLAN: Complicated urinary tract infection. The patient known to have apparently multiple resistant organisms. We will adjust therapy to consider including extended-spectrum beta-lactamase. Review of cultures available only up to 05/2018, had a fairly susceptible Klebsiella, although we will try to obtain records from [facility] and adjust for his renal failure. Certainly avoid quinolones and Bactrim at this point. <ELECTRONICALLY SIGNED> By: Chetan Duarte MD 09/15/19 1036 [id number] Duarte MD /nt
[2019-09-15 15:21] LABS: ABSOLUTE BASOPHILS 0.1 thou/uL (0.0-0.2); ABSOLUTE EOSINOPHILS 0.2 thou/uL (0.0-0.7); ABSOLUTE LYMPHOCYTES 0.8 thou/uL (0.8-5.3); ABSOLUTE MONOCYTES 0.5 thou/uL (0.0-1.2); ABSOLUTE NEUTROPHILS 7.1 thou/uL (1.6-8.1); BASOPHILS 0.7 %; EOSINOPHILS 2.8 %; HEMATOCRIT 25.2 % (42.0-52.0); HEMOGLOBIN 8.4 gm/dL (14.0-18.0); LYMPHOCYTES 9.2 %; MCH 29.1 pg (26.0-34.0); MCHC 33.5 g/dL (28.0-37.0); MCV 86.9 fL (80.0-100.0); MONOCYTES 6.1 %; MPV 6.4 fl. (7.2-11.1); NUCLEATED RBCS 0 /100WBC; PLATELET COUNT* 325 thou/uL (150-400); POLYS 81.2 %; RDW-CV 14.7 % (10.5-14.5); WBC 8.8 thou/uL (4.0-11.0)
[2019-09-15 15:28] LABS: CALCIUM 7.9 mg/dL (8.5-10.1); CREATININE 6.4 mg/dL (0.6-1.3); POTASSIUM 3.6 mmol/L (3.5-5.1)
[2019-09-15 17:11] VITALS: BP 147/71
--- NOTE | 2019-09-15 18:58 | NUR ---
ASSUMED PT CARE AT 0730. ASSESSMENT COMPLETED CHARTED. ABLE TO MAKE NEEDS KNOWN. UP SBA DUE TO LIGHTHEADEDNESS. GOT 1 UNIT OF BLOOD AND SOME ELECTROLYTE REPLACEMENT. NO C/O PAIN OR DISCOMFORT. RESTING IN BED MOST OF THE DAY. IV FLUIDS RUNNING PER EMAR. RESTING BED MOST OF THE DAY. WILL CONTINUE TO MONITOR.
[2019-09-15 20:00] VITALS: BP 149/66
[2019-09-15 22:50] LABS: URINE BILIRUBIN NEGATIVE (Negative); URINE BLOOD 2+ (Negative); URINE COLOR STRAW; URINE GLUCOSE-RANDOM NEGATIVE (Negative); URINE KETONES NEGATIVE (Negative); URINE LEUKOCYTES 2+ (Negative); URINE NITRITE NEGATIVE (Negative); URINE PROTEIN 1+ (Negative); URINE SPECIFIC GRAVITY 1.015 (1.005-1.030); URINE UROBILINOGEN 0.2 E.U./dl (0.2-1.0)
[2019-09-15 22:52] LABS: URINE CLARITY SL CLOUDY
[2019-09-15 22:53] LABS: URINE POTASSIUM-RANDOM 10.3 mmol/L
[2019-09-15 23:04] LABS: SQUAMOUS 0-3 Few /LPF (0-3)
[2019-09-15 23:05] LABS: BACTERIA >30 Many /HPF (None Seen); CASTS None Seen /LPF (None Seen); CRYSTALS None Seen /LPF (None Seen); MUCUS 4-6 Moderate strn/LPF (None Seen); URINE RBC 3-10 Few /HPF (0-2); WBC CLUMPS Few (None Seen)
[2019-09-16] VITALS: BP 163/67
[2019-09-16 03:40] VITALS: BP 149/65
[2019-09-16 04:46] LABS: ALBUMIN 2.8 g/dL (3.4-5.0); CALCIUM 7.7 mg/dL (8.5-10.1); CREATININE 5.9 mg/dL (0.6-1.3); TOTAL BILIRUBIN 0.4 mg/dL (<0.1-1.0); TOTAL PROTEIN 6.5 g/dL (6.4-8.2)
[2019-09-16 04:47] LABS: POTASSIUM 2.8 mmol/L (3.5-5.1)
--- NOTE | 2019-09-16 05:22 | NUR ---
ASSUMED PATIENT CARE AT 1900. ASSESSMENT COMPLETED CHARTED. PATIENT IS NSR ON THE MONITOR. HOURLY ROUNDING IN PLACE FOR PATIENT SAFETY. CLWR.
[2019-09-16 08:00] VITALS: BP 168/82
[2019-09-16 12:00] VITALS: BP 167/73
[2019-09-16 16:00] VITALS: BP 146/56
[2019-09-16 20:00] VITALS: BP 163/77
--- NOTE | 2019-09-16 20:06 | NUR ---
I ASSUMED CARE OF THE PATIENT AT 0700. BED IS IN THE LOW LOCKED POSITION AND CALL LIGHT IS IN REACH. HOURLY ROUNDING IS COMPLETED AND PATIENT NEEDS ARE MET. PAIN IS MANAGED WITH PRN MEDS. FLUIDS ARE INFUSING. WILL CONTINUE TO MONITOR.
[2019-09-17 05:15] VITALS: BP 160/77
[2019-09-17 05:42] LABS: ALBUMIN 2.9 g/dL (3.4-5.0); CALCIUM 7.7 mg/dL (8.5-10.1); CREATININE 5.5 mg/dL (0.6-1.3); POTASSIUM 3.1 mmol/L (3.5-5.1); TOTAL BILIRUBIN 0.5 mg/dL (<0.1-1.0); TOTAL PROTEIN 6.5 g/dL (6.4-8.2)
--- NOTE | 2019-09-17 06:04 | NUR ---
ASSUMED PATIENT CARE AT 1900. ASSESSMENT COMPLETED CHARTED. PATIENT IS NSR ON THE MONITOR. HOURLY ROUNDING IN PLACE FOR PATIENT SAFETY. CLWR.
[2019-09-17 08:00] VITALS: BP 165/63
[2019-09-17 11:20] VITALS: BP 149/80
[2019-09-17 11:30] VITALS: BP 166/81
--- NOTE | 2019-09-17 12:46 | NUR ---
ASSUMED PT CARE AT 0730, PT LYING IN BED SATTING 100% ON RA, TRACING SR ON THE THIRD HAND AND HAD NO C/O PAIN OR SHORTNESS OF BREATH. AT APPROX 1130, PT C/O ANXIETY-LIKE SYMPTOMS AFTER HEARING ABOUT GRAM NEGATIVE BACTERIA IN URINE. VITALS WERE ALL W/IN NORMAL LIMITS FOR PT, NON-PHARM ANTI-ANXIETY MEASURES WERE USED TO HELP CALM PT DOWN. PT GOAL IS TO REMAIN FREE FROM ANXIETY AND REPLACE POTASSIUM. AM ASSESSMENT CHARTED, MEDS PER MAR, HOURLY ROUNDING OBSERVED, WILL CONTINUE POC.
[2019-09-17 17:23] VITALS: BP 167/75
--- NOTE | 2019-09-17 18:59 | NUR ---
NO ACUTE CHANGES THROUGHOUT SHIFT, PT CONTINUED TO HAVE ANXIETY THIS AFTERNOON, TREATED W/ PRN ATIVAN AND LEXAPRO. PT EDUCATED ON NON-PHARM MEASURES. PT VERY ANXIOUS, STATING HOLISTIC APPROACHES HE BELIEVES IS BEST. PT CURRENTLY RESTING IN BED W/ COLD WASH CLOTH ON HEAD. HOURLY ROUNDING OBSERVED, MEDS PER MAR, WILL CONTINUE POC.
[2019-09-17 20:00] VITALS: BP 180/92
[2019-09-18] VITALS: BP 124/68
[2019-09-18 04:00] VITALS: BP 168/81
--- NOTE | 2019-09-18 04:22 | NUR ---
PT WAS VERY ANXIOUS @ BEGINNING OF SHIFT- ABOUT NAUSEA/VOMITING. YELLOW BILE EMESIS OBSERVED. DR NOTIFIED AND ZOFRAN AND PHENERGRAN GIVEN. ALSO CONCERNED ABOUT PT'S VOMITING. DR ALSO ORDERED AM LABS. PT REPORTED FEELING RELIEF AFTER MEDICAITON AND REPORTED "FEELING ALOT BETTER THIS MORNING."
[2019-09-18 05:56] LABS: ALBUMIN 2.9 g/dL (3.4-5.0); CALCIUM 8.4 mg/dL (8.5-10.1); CREATININE 5.3 mg/dL (0.6-1.3); MAGNESIUM 1.9 mg/dL (1.8-2.4); PHOSPHORUS* 2.9 mg/dL (2.5-4.9); POTASSIUM 4.2 mmol/L (3.5-5.1)
[2019-09-18 07:24] LABS: HEMATOCRIT 24.6 % (42.0-52.0); HEMOGLOBIN 8.2 gm/dL (14.0-18.0); MCH 28.7 pg (26.0-34.0); MCHC 33.3 g/dL (28.0-37.0); MCV 86.4 fL (80.0-100.0); MPV 6.8 fl. (7.2-11.1); RBC 2.85 mil/uL (4.50-6.00); RDW-CV 14.5 % (10.5-14.5); WBC 8.8 thou/uL (4.0-11.0)
[2019-09-18 08:00] VITALS: BP 152/78
[2019-09-18 09:49] LABS: ALBUMIN 3.1 g/dL (3.4-5.0); CALCIUM 8.1 mg/dL (8.5-10.1); CREATININE 5.1 mg/dL (0.6-1.3); POTASSIUM 4.2 mmol/L (3.5-5.1); TOTAL BILIRUBIN 0.5 mg/dL (<0.1-1.0); TOTAL PROTEIN 6.8 g/dL (6.4-8.2)
[2019-09-18 11:45] LABS: URINE BILIRUBIN NEGATIVE (Negative); URINE BLOOD 2+ (Negative); URINE CLARITY CLEAR; URINE COLOR YELLOW; URINE GLUCOSE-RANDOM NEGATIVE (Negative); URINE KETONES NEGATIVE (Negative); URINE LEUKOCYTES-REFLEX TRACE (Negative); URINE NITRITE-REFLEX NEGATIVE (Negative); URINE PROTEIN 2+ (Negative); URINE UROBILINOGEN 0.2 E.U./dl (0.2-1.0)
[2019-09-18 11:51] LABS: SQUAMOUS NONE SEEN /LPF (0-3)
[2019-09-18 11:52] LABS: BACTERIA-REFLEX 1-9 Few /HPF (None Seen); CASTS None Seen /LPF (None Seen); CRYSTALS None Seen /LPF (None Seen); MUCUS None Seen strn/LPF (None Seen); URINE RBC 3-10 Few /HPF (0-2); URINE WBC-REFLEX 0-5 Rare /HPF (0-5)
[2019-09-18 12:00] VITALS: BP 155/65
--- NOTE | 2019-09-18 14:28 | CON ---
[address] [address] CONSULTATION Name: RILEY COTO Room: [address] IN M.R.#: [id number] Admission: 09/13/19 Attend Phys: Carolyne Hopper Discharge: Date of : 41 Report #: [id number] THIS REPORT FOR: //name// cc: Lisy Dejesus MD, Madhavi MD ~ THIS REPORT FOR: //name// CC: Carolyne Campos NEPHROLOGY CONSULTATION CONSULTING PHYSICIAN: Carolyne Wild MD REASON FOR CONSULTATION: Acute kidney injury. HISTORY OF PRESENT ILLNESS: A 73-year-old gentleman who has a history of chronic kidney disease stage 4, followed by Dr. Dejesus at , admitted with nausea and vomiting, recently he was diagnosed with a urinary tract infection, treated with doxycycline. He has a tendency toward volume depletion. He has a history of a prostatectomy and urostomy. He comes in with an elevated creatinine of 6.9. Denies any NSAID use. Denies any diarrhea. His creatinine on 10/2018 was 3.2 and his baseline appears to run somewhere in the 3-3.5 range. In 2017, he did have acute kidney injury with creatinine as high as 5.6. He tells me he did require temporary dialysis following a complicated hospital course at [place] in 2013. He presently has no complaints or concerns. REVIEW OF SYSTEMS: Constitutional, psych, heme, eyes, ENT, respiratory, cardiac, GI, , endocrine, all negative except as documented above. PAST MEDICAL HISTORY: History of PE with IVC filter, history of chronic kidney disease stage 4, prostatectomy, urostomy, coronary artery disease with CABG, appendectomy. FAMILY HISTORY: Not pertinent in 73-year-old gentleman. SOCIAL HISTORY: No tobacco. PHYSICAL EXAMINATION: VITAL SIGNS: Blood pressure is 160/75, pulse 85, temperature 36.3. GENERAL: No acute distress. EYES: Open. EARS: Externally normal. NECK: Supple. CARDIOVASCULAR: Regular rate. LUNGS: No crackles. ABDOMEN: [place] [address] CONSULTATION Name: RILEY COTO Room: [address] IN [facility]#: [id number] Admission: 09/13/19 Attend Phys: Carolyne Hopper Discharge: Date of : 41 Report #: [id number] MUSCULOSKELETAL: Nontender. PSYCHIATRIC: Awake, alert. NEUROLOGIC: No pericardial friction rub and no asterixis. LABORATORY DATA: White cell count 9, hemoglobin 7.5, platelets 351. Sodium 140, potassium 3.3, chloride 111, bicarbonate 10, BUN 117, creatinine 6.6, glucose 119, calcium 7.8, phosphorus 6.2, magnesium 2, albumin 2.9. ASSESSMENT: 1. Acute kidney injury with admission creatinine of 6.9 in setting of nausea, vomiting and volume depletion. In 2017, creatinine was as high as 5.6, on 11/07/2018, creatinine 3.2. 2. Chronic kidney disease stage 4, baseline creatinine somewhere in the 3-3.5 range, followed by Dr. Dejesus at . 3. Hypoalbuminemia with an albumin of 2.9. 4. Anemia. 5. Abnormal urinalysis. 6. History of prostate cancer with urostomy. 7. Metabolic acidosis. Salicylate was less than 2.8. Lactic acid 0.5. Alcohol was less than 10. He does have a urostomy, it is also in the setting of renal dysfunction. 8. History of pulmonary embolism with inferior vena cava filter, coronary artery disease with history of coronary artery bypass graft. PLAN: 1. Discontinue normal saline. 2. Give bicarbonate IV. 3. Hypokalemia, we will replace orally. 4. Hyperphosphatemia, we will monitor. 5. He is making urine. There are no acute indications for dialysis at this time. We will follow closely along with you. Records from were reviewed. We will check iron studies and check labs again in the a.m. Thank you very much for requesting my opinion in the care and management of this patient. <ELECTRONICALLY SIGNED> By: Fouzia Guillory MD 09/18/19 1428 [id number] Guillory MD /nt
[2019-09-18 16:00] VITALS: BP 152/77
[2019-09-18 20:00] VITALS: BP 157/73
[2019-09-19] VITALS: BP 161/68
[2019-09-19 04:00] VITALS: BP 165/75
--- NOTE | 2019-09-19 04:46 | NUR ---
ASSUMED PT CARE AT APPROX 1930. PT IS AWAKE AND ORIENTED X4. REIMBURSEMENT MANAGER IS TRACING SR. PT DENIES PAIN/NAUSEA. ASSESSMENT DONE AND CHARTED. UROSTOMY IS INTACT AND DRAINING WELL. PT IS ABLE TO SLEEP MOST OF THE NIGHT. CALL LIGHT WITHIN REACH. HOURLY ROUNDING DONE FOR PT SAFETY. FALL PRECAUTIONS IN PLACE.
[2019-09-19 05:59] LABS: ALBUMIN 2.9 g/dL (3.4-5.0); CALCIUM 8.1 mg/dL (8.5-10.1); CREATININE 4.6 mg/dL (0.6-1.3); MAGNESIUM 1.7 mg/dL (1.8-2.4); PHOSPHORUS* 3.9 mg/dL (2.5-4.9); POTASSIUM 3.7 mmol/L (3.5-5.1)
[2019-09-19 08:00] VITALS: BP 148/76
[2019-09-19 15:24] VITALS: BP 149/69
[2019-09-19 20:00] VITALS: BP 155/70
[2019-09-20 00:05] VITALS: BP 148/69
[2019-09-20 04:00] VITALS: BP 160/70
[2019-09-20 05:00] LABS: ALBUMIN 2.9 g/dL (3.4-5.0); CREATININE 4.3 mg/dL (0.6-1.3); MAGNESIUM 1.7 mg/dL (1.8-2.4); PHOSPHORUS* 3.8 mg/dL (2.5-4.9); POTASSIUM 3.3 mmol/L (3.5-5.1)
--- NOTE | 2019-09-20 06:29 | NUR ---
ASSUMED PT CARE AT APPROX 1930. PT IS AWAKE AND ORIENTED X4. AVIONICS SYSTEMS REPAIRER IN PLACE TRACING SR. ASSESSMENT DONE AND CHARTED. PT DENIES PAIN/DISCOMFORT. NO ACUTE CHANGES THROUGH THE NIGHT. CALL LIGHT WITHIN REACH. HOURLY ROUNDING DONE FOR PT SAFETY.
[2019-09-20 08:00] VITALS: BP 181/76
[2019-09-20 11:56] VITALS: BP 148/68
--- NOTE | 2019-09-20 14:00 | NUR ---
ASSUMED PT CARE AT 0730, PT RESTING IN BED, SATTING 100% ON RA, TRACING SR ON THE QUALITY SPECIALIST AND C/O ANXIETY. PRN ATIVAN GIVEN W/ RELIEF. PT GOAL IS TO REMAIN FREE FROM ANXIETY AND INCREASE ACTIVITY AND REPLACE POTASSIUM AND MAGNESIUM PER E'LYTE PROTOCOL. IV FLUIDS ARE TO BE DC'D AFTER CURRENT BAG IS FINISHED INFUSING. PT IS CURRENTLY TAKING A SHOWER. AM ASSESSMENT CHARTED, MEDS PER MAR, HOURLY ROUNDING OBSERVED, WILL CASA LUIS.
[2019-09-20 16:31] VITALS: BP 148/75
--- NOTE | 2019-09-20 19:01 | NUR ---
NO ACUTE CHANGES THROUGHOUT SHIFT. PT CONTINUES TO SAT UPPER 90'2 ON RA AND TRACE SR ON THE LAND ACQUISITION MANAGER. PT HAD NO FURTHER C/O ANXIETY THROUGHOUT SHIFT. MEDS PER MAR, HOURLY ROUNDING OBSERVED, WILL CONTINUE POC.
[2019-09-20 20:00] VITALS: BP 159/74
[2019-09-21] VITALS: BP 162/72
[2019-09-21 04:00] VITALS: BP 165/72
[2019-09-21 05:12] LABS: CALCIUM 8.3 mg/dL (8.5-10.1); CREATININE 4.2 mg/dL (0.6-1.3)
--- NOTE | 2019-09-21 07:33 | NUR ---
Shift uneventful. Pt is aox4, running SR w/ PVCs, respirations are even and unlabored on room air. Pt is medically stable at this time.
[2019-09-21 07:45] VITALS: BP 160/72
--- NOTE | 2019-09-21 08:32 | NUR ---
Per , Pt making slow progress. Goal continues to be to return home at dc.
--- NOTE | 2019-09-21 11:38 | NUR ---
ASSUMED PT CARE AT 0730, PT RESTING IN BED, SATTING 100% ON RA, TRACING SR ON THE STATISTICS TUTOR AND HAS NO C/O PAIN OR ANXIETY THIS MORNING BUT ENDED UP HAVING SOME ANXIETY AROUND 1100, PRN ATIVAN GIVEN. PT SPOKE W/ NEPHRO TODAY AND NEPHRO CLEARED PT TO DC SINCE HIS CREATININE HAS IMPROVED. PT GOAL IS TO DECREASE ANXIETY AND INCREASE ACTIVITY. AM ASSESSMENT CHARTED, MEDS PER MAR, HOURLY ROUNDING OBSERVED, WILL CONTINUE POC.
[2019-09-21 12:21] VITALS: BP 164/80
[2019-09-21] MEDS ORDERED: ANTACID650 MG PO (12:48)
[2019-09-21] MEDS ORDERED: ESCITALOPRAM OX10 MG PO (12:48)
[2019-09-21 14:50] VITALS: BP 164/80
--- NOTE | 2019-09-21 15:42 | NUR ---
DISCHARGE ORDERS RECEIVED. DISCHARGE INSTRUCTIONS, CARE NOTES, FOLLOW UP APPTS, AND ALL PERSONAL BELONGINGS SENT W/ PT VIA W/ NURSING STAFF TO 'S PERSONAL VEHICLE. PT COMMUNICATES UNDERSTANDING OF DC TEACHING. IV AND SCIENTIFIC AFFAIRS MANAGER REMOVED.
== END 2019-09-21 16:00 | disposition home or self-care (01) | DRG 689 ==
LOC: M.ERS 16:55 → M.2W 18:04 → M.TBA-ER 18:04 → M.2W 19:23
PROVIDERS: Emergency Medicine; Internal Medicine; Internal Medicine Nephrology; Specialist; ADMIT Family Medicine
PROC: 30233N1 Transfusion of Nonautologous Red Blood Cells into Peripheral Vein, Percutaneous Approach (ICD-10-PCS; principal; 2019-09-15)
DX: N39.0 Urinary tract infection, site not specified (principal); N17.0 Acute kidney failure with tubular necrosis; N18.4 Chronic kidney disease, stage 4 (severe); E87.2 Acidosis; E44.0 Moderate protein-calorie malnutrition; D64.9 Anemia, unspecified; E11.22 Type 2 diabetes mellitus with diabetic chronic kidney disease; E88.09 Other disorders of plasma-protein metabolism, not elsewhere classified; I25.10 Atherosclerotic heart disease of native coronary artery without angina pectoris; Z95.1 Presence of aortocoronary bypass graft; Z95.5 Presence of coronary angioplasty implant and graft; Z90.89 Acquired absence of other organs; Z79.899 Other long term (current) drug therapy; Z88.1 Allergy status to other antibiotic agents; Z88.2 Allergy status to sulfonamides; Z88.8 Allergy status to other drugs, medicaments and biological substances; Z86.711 Personal history of pulmonary embolism; Z79.01 Long term (current) use of anticoagulants; Z95.820 Peripheral vascular angioplasty status with implants and grafts; Z87.440 Personal history of urinary (tract) infections; D63.8 Anemia in other chronic diseases classified elsewhere; Z86.73 Personal history of transient ischemic attack (TIA), and cerebral infarction without residual deficits; Z68.28 Body mass index [BMI] 28.0-28.9, adult; Z85.46 Personal history of malignant neoplasm of prostate; Z93.6 Other artificial openings of urinary tract status

== ENCOUNTER 2020-07-11 14:44 | Inpatient (IN) | payer MEDICARE, OTHER ==
[~2020-07-11] VITALS: Ht 177.8 cm; Wt 90.7 kg
[~2020-07-11 14:44] MED LIST changes: +ANTACID650 MG PO; +ESCITALOPRAM OX10 MG PO; +NORVASC10 MG PO
[2020-07-11 15:02] VITALS: BP 167/70
[2020-07-11 15:12] LABS: ABSOLUTE BASOPHILS 0.1 thou/uL (0.0-0.2); ABSOLUTE EOSINOPHILS 0.4 thou/uL (0.0-0.7); ABSOLUTE LYMPHOCYTES 1.2 thou/uL (0.8-5.3); ABSOLUTE MONOCYTES 0.6 thou/uL (0.0-1.2); ABSOLUTE NEUTROPHILS 5.3 thou/uL (1.6-8.1); BASOPHILS 0.9 %; EOSINOPHILS 4.7 %; HEMATOCRIT 32.4 % (42.0-52.0); HEMOGLOBIN 10.6 gm/dL (14.0-18.0); LYMPHOCYTES 16.1 %; MCH 28.3 pg (26.0-34.0); MCHC 32.7 g/dL (28.0-37.0); MCV 86.7 fL (80.0-100.0); MONOCYTES 8.6 %; MPV 6.7 fl. (7.2-11.1); NUCLEATED RBCS 0 /100WBC; PLATELET COUNT* 297 thou/uL (150-400); POLYS 69.7 %; RBC 3.74 mil/uL (4.50-6.00); RDW-CV 13.9 % (10.5-14.5); WBC 7.5 thou/uL (4.0-11.0)
[2020-07-11] MEDS ORDERED: BLOOD PRESSURE MED (15:19)
[2020-07-11 15:21] LABS: CALCIUM 9.2 mg/dL (8.5-10.1); CREATININE 5.3 mg/dL (0.6-1.3); POTASSIUM 4.2 mmol/L (3.5-5.1)
[2020-07-11 15:25] LABS: ALBUMIN 3.5 g/dL (3.4-5.0); TOTAL BILIRUBIN 0.3 mg/dL (<0.1-1.0); TOTAL PROTEIN 7.4 g/dL (6.4-8.2)
[2020-07-11 15:40] LABS: URINE BILIRUBIN NEGATIVE (Negative); URINE BLOOD 1+ (Negative); URINE CLARITY SL CLOUDY; URINE COLOR YELLOW; URINE GLUCOSE-RANDOM NEGATIVE (Negative); URINE KETONES NEGATIVE (Negative); URINE NITRITE-REFLEX NEGATIVE (Negative); URINE PROTEIN 2+ (Negative); URINE UROBILINOGEN 0.2 E.U./dl (0.2-1.0)
[2020-07-11 15:46] LABS: URINE LEUKOCYTES-REFLEX 3+ (Negative)
[2020-07-11 15:49] LABS: SQUAMOUS 0-3 Few /LPF (0-3); URINE WBC-REFLEX >25 Many /HPF (0-5)
[2020-07-11 15:50] LABS: BACTERIA-REFLEX >30 Many /HPF (None Seen); CASTS None Seen /LPF (None Seen); CRYSTALS None Seen /LPF (None Seen); URINE RBC 3-10 Few /HPF (0-2)
[2020-07-11 17:25] VITALS: BP 166/81
[2020-07-11 18:06] VITALS: BP 168/54
[2020-07-11 20:00] VITALS: BP 154/78
[2020-07-12 06:29] LABS: HEMATOCRIT 27.6 % (42.0-52.0); HEMOGLOBIN 9.2 gm/dL (14.0-18.0); MCH 28.4 pg (26.0-34.0); MCHC 33.2 g/dL (28.0-37.0); MCV 85.4 fL (80.0-100.0); MPV 6.5 fl. (7.2-11.1); RBC 3.23 mil/uL (4.50-6.00); WBC 6.7 thou/uL (4.0-11.0)
[2020-07-12 06:54] LABS: ALBUMIN 3.1 g/dL (3.4-5.0); CALCIUM 8.7 mg/dL (8.5-10.1); CREATININE 4.8 mg/dL (0.6-1.3); MAGNESIUM 2.6 mg/dL (1.8-2.4); POTASSIUM 3.9 mmol/L (3.5-5.1); TOTAL BILIRUBIN 0.4 mg/dL (<0.1-1.0); TOTAL PROTEIN 6.5 g/dL (6.4-8.2)
[2020-07-12 08:10] VITALS: BP 172/75
[2020-07-12 16:28] VITALS: BP 165/81
[2020-07-12 19:50] VITALS: BP 163/78
[2020-07-13 08:18] LABS: ABSOLUTE BASOPHILS 0.1 thou/uL (0.0-0.2); ABSOLUTE EOSINOPHILS 0.4 thou/uL (0.0-0.7); ABSOLUTE LYMPHOCYTES 1.3 thou/uL (0.8-5.3); ABSOLUTE MONOCYTES 0.6 thou/uL (0.0-1.2); ABSOLUTE NEUTROPHILS 4.3 thou/uL (1.6-8.1); BASOPHILS 1.1 %; EOSINOPHILS 6.6 %; HEMATOCRIT 29.6 % (42.0-52.0); HEMOGLOBIN 9.8 gm/dL (14.0-18.0); LYMPHOCYTES 19.5 %; MCH 28.2 pg (26.0-34.0); MCV 85.5 fL (80.0-100.0); MONOCYTES 9.5 %; MPV 6.6 fl. (7.2-11.1); NUCLEATED RBCS 0 /100WBC; PLATELET COUNT* 264 thou/uL (150-400); POLYS 63.3 %; RBC 3.46 mil/uL (4.50-6.00); RDW-CV 14.1 % (10.5-14.5); WBC 6.7 thou/uL (4.0-11.0)
[2020-07-13 08:30] VITALS: BP 185/94
[2020-07-13 08:31] LABS: CALCIUM 8.6 mg/dL (8.5-10.1); CREATININE 4.3 mg/dL (0.6-1.3); POTASSIUM 3.8 mmol/L (3.5-5.1); URIC ACID* 5.7 mg/dL (2.6-7.2)
[2020-07-13] MEDS ORDERED: CEFUROXIME500 MG PO (09:33)
[2020-07-13 12:51] VITALS: BP 185/94
[2020-07-13 16:45] LABS: SMEAR FOR EOSINOPHILS Rare per HPF
== END 2020-07-13 13:20 | disposition home or self-care (01) | DRG 683 ==
LOC: M.ERS 14:44 → M.3W 15:46 → M.TBA-ER 15:46 → M.3W 17:30
PROVIDERS: Internal Medicine; Internal Medicine Nephrology; Physician Assistant; ADMIT Internal Medicine; ATTEND Internal Medicine
DX: N17.0 Acute kidney failure with tubular necrosis (principal); N30.01 Acute cystitis with hematuria; N18.4 Chronic kidney disease, stage 4 (severe); I25.10 Atherosclerotic heart disease of native coronary artery without angina pectoris; E11.22 Type 2 diabetes mellitus with diabetic chronic kidney disease; B96.89 Other specified bacterial agents as the cause of diseases classified elsewhere; Z20.822 Contact with and (suspected) exposure to COVID-19; Z85.46 Personal history of malignant neoplasm of prostate; Z95.1 Presence of aortocoronary bypass graft; Z88.1 Allergy status to other antibiotic agents; Z88.2 Allergy status to sulfonamides; Z88.8 Allergy status to other drugs, medicaments and biological substances; Z79.899 Other long term (current) drug therapy; Z95.5 Presence of coronary angioplasty implant and graft; Z90.49 Acquired absence of other specified parts of digestive tract

== ENCOUNTER 2020-10-18 09:32 | Emergency (ER) | payer MEDICARE, OTHER ==
[~2020-10-18] VITALS: Ht 177.8 cm; Wt 90.7 kg
[~2020-10-18 09:32] MED LIST changes: +BLOOD PRESSURE MED
[2020-10-18 10:08] LABS: URINE BILIRUBIN NEGATIVE (Negative); URINE BLOOD TRACE (Negative); URINE CLARITY CLEAR; URINE COLOR YELLOW; URINE GLUCOSE-RANDOM NEGATIVE (Negative); URINE KETONES NEGATIVE (Negative); URINE LEUKOCYTES-REFLEX 1+ (Negative); URINE NITRITE-REFLEX NEGATIVE (Negative); URINE PROTEIN 2+ (Negative); URINE UROBILINOGEN 0.2 E.U./dl (0.2-1.0)
[2020-10-18 10:15] LABS: ABSOLUTE BASOPHILS 0.1 thou/uL (0.0-0.2); ABSOLUTE EOSINOPHILS 0.3 thou/uL (0.0-0.7); ABSOLUTE LYMPHOCYTES 0.7 thou/uL (0.8-5.3); ABSOLUTE MONOCYTES 0.6 thou/uL (0.0-1.2); ABSOLUTE NEUTROPHILS 5.6 thou/uL (1.6-8.1); BASOPHILS 1.2 %; EOSINOPHILS 4.1 %; HEMATOCRIT 26.5 % (42.0-52.0); HEMOGLOBIN 8.7 gm/dL (14.0-18.0); MCH 28.6 pg (26.0-34.0); MCHC 32.9 g/dL (28.0-37.0); MCV 87.1 fL (80.0-100.0); MONOCYTES 8.3 %; MPV 7.1 fl. (7.2-11.1); NUCLEATED RBCS 0 /100WBC; PLATELET COUNT* 219 thou/uL (150-400); POLYS 76.4 %; RBC 3.04 mil/uL (4.50-6.00); RDW-CV 14.7 % (10.5-14.5); WBC 7.3 thou/uL (4.0-11.0)
[2020-10-18 10:26] LABS: CALCIUM 8.2 mg/dL (8.5-10.1); CREATININE 5.3 mg/dL (0.6-1.3); POTASSIUM 3.9 mmol/L (3.5-5.1)
[2020-10-18 10:31] LABS: ALBUMIN 3.4 g/dL (3.4-5.0); TOTAL BILIRUBIN 0.4 mg/dL (<0.1-1.0); TOTAL PROTEIN 6.8 g/dL (6.4-8.2)
[2020-10-18 10:41] LABS: MUCUS 0-3 Light strn/LPF (None Seen)
[2020-10-18 10:43] LABS: SQUAMOUS NONE SEEN /LPF (0-3); URINE RBC 0-2 Rare /HPF (0-2); URINE WBC-REFLEX >25 Many /HPF (0-5)
[2020-10-18] MEDS ORDERED: MACROBID 100 M100 M1 PO (11:10)
[2020-10-18 11:17] VITALS: BP 124/60
== END 2020-10-18 11:18 | disposition home or self-care (01) ==
LOC: M.ERS 09:32
PROVIDERS: Family Medicine
DX: N39.0 Urinary tract infection, site not specified (principal); E11.22 Type 2 diabetes mellitus with diabetic chronic kidney disease; N18.4 Chronic kidney disease, stage 4 (severe); Z88.2 Allergy status to sulfonamides; Z88.1 Allergy status to other antibiotic agents; Z88.8 Allergy status to other drugs, medicaments and biological substances; Z95.1 Presence of aortocoronary bypass graft; Z87.440 Personal history of urinary (tract) infections; Z90.49 Acquired absence of other specified parts of digestive tract; Z85.46 Personal history of malignant neoplasm of prostate

== ENCOUNTER 2021-03-05 02:01 | Inpatient (IN) | payer MEDICARE, OTHER ==
[~2021-03-05] VITALS: Ht 177.8 cm; Wt 83.9 kg
[~2021-03-05 02:01] MED LIST changes: +MACROBID 100 M100 M1 PO
[2021-03-05 02:24] LABS: HEMATOCRIT 28.7 % (42.0-52.0); HEMOGLOBIN 9.4 gm/dL (14.0-18.0); MCH 28.7 pg (26.0-34.0); MCHC 32.9 g/dL (28.0-37.0); MCV 87.4 fL (80.0-100.0); MPV 7.1 fl. (7.2-11.1); NUCLEATED RBCS 0 /100WBC; PLATELET COUNT* 236 thou/uL (150-400); RBC 3.29 mil/uL (4.50-6.00); RDW-CV 14.5 % (10.5-14.5); WBC 7.9 thou/uL (4.0-11.0)
[2021-03-05 02:35] LABS: CALCIUM 8.7 mg/dL (8.5-10.1); CREATININE 5.3 mg/dL (0.6-1.3); POTASSIUM 3.8 mmol/L (3.5-5.1)
[2021-03-05 02:46] LABS: ALBUMIN 3.4 g/dL (3.4-5.0); MAGNESIUM 2.8 mg/dL (1.8-2.4); TOTAL BILIRUBIN 0.4 mg/dL (<0.1-1.0); TOTAL PROTEIN 7.3 g/dL (6.4-8.2)
[2021-03-05 03:23] LABS: ABSOLUTE EOSINOPHILS 0.4 thou/uL (0.0-0.7); ABSOLUTE LYMPHOCYTES 1.2 thou/uL (0.8-5.3); ABSOLUTE MONOCYTES 0.4 thou/uL (0.0-1.2); ABSOLUTE NEUTROPHILS 5.9 thou/uL (1.6-8.1); PLATELET ESTIMATE ADEQUATE
[2021-03-05 03:24] LABS: ANISOCYTOSIS Occasional
[2021-03-05 06:00] VITALS: BP 157/71
[2021-03-05 06:29] LABS: URINE BILIRUBIN NEGATIVE (Negative); URINE BLOOD TRACE (Negative); URINE CLARITY CLEAR; URINE COLOR YELLOW; URINE GLUCOSE-RANDOM NEGATIVE (Negative); URINE KETONES NEGATIVE (Negative); URINE LEUKOCYTES-REFLEX TRACE (Negative); URINE NITRITE-REFLEX NEGATIVE (Negative); URINE PROTEIN 2+ (Negative); URINE UROBILINOGEN 0.2 E.U./dl (0.2-1.0)
[2021-03-05 06:40] LABS: CASTS None Seen /LPF (None Seen); CRYSTALS None Seen /LPF (None Seen); MUCUS 0-3 Light strn/LPF (None Seen); SQUAMOUS 0-3 Few /LPF (0-3); URINE RBC 0-2 Rare /HPF (0-2); URINE WBC-REFLEX 6-15 Few /HPF (0-5)
--- NOTE | 2021-03-05 14:22 | EKG ---
[place] [address] ELECTROCARDIOGRAM REPORT Name: RILEY COTO Room: [place] [address] ADM IN .R.#: [id number] Admission: 03/05/21 Attend Phys: Stella Jewell Discharge: Date of : 41 Date of Service: 03/05/21 0207 Report #: [id number] THIS REPORT FOR: //name// [facility] ED Test Date: 2021-03-05 Test Time: 02:07:11 Pat Name: RILEY COTO Department: Room: [facility] Gender: M Cube Cutter: DORIS : 1945 Requested By: Alondra Berrios Order Number: [id number] MD: Nick Delaney Measurements Intervals [place] Rate: 106 P: 55 WV: 159 QRS: 29 QRSD: 81 T: -7 QT: 346 QTc: 460 Interpretive Statements Sinus tachycardia Borderline repol abnrm, inferolateral leads Compared to ECG 09/26/2017 23:39:41 Sinus rhythm no longer present Ventricular premature complex(es) no longer present Electronically Signed On 03-05-2021 14:22:26 CDT by Nick Delaney [email or web address] <ELECTRONICALLY SIGNED> By: Nick Delaney MD, FACC 03/05/21 1422 6 6 Nick Delaney MD, FACC /EPI
--- NOTE | 2021-03-05 15:14 | 2DMMODE ---
[place] [address] 2 D/M-MODE ECHOCARDIOGRAM Name: RILEY COTO Room: [place] [address] ADM IN M.R.#: [id number] Admission: 03/05/21 Attend Phys: Stella Jewell Discharge: Date of : 41 Date of Service: 03/05/21 1514 Report #: [id number] THIS REPORT FOR: cc: FAM - No family physician/PCP FAM - No family physician/PCP Doe Gutiérrez MD [facility] ~ APPROVED REPORT Study performed: 03/05/2021 09:51:48 EXAM: Comprehensive 2D, Doppler, and color-flow Echocardiogram Patient Location: ER BSA: 2.08 HR: 92 bpm BP: 146/74 mmHg Other Information Study Quality: Adequate Indications Dyspnea 2D Dimensions IVSd: 15.89 (7-11mm) LVOT Diam: 20.40 (18-24mm) LVDd: 45.64 mm PWd: 16.53 (7-11mm) Ascending Ao: 31.77 (22-36mm) LVDs: 36.10 (25-40mm) Aortic Root: 30.36 mm Volumes Left Atrial Volume (Systole) LA ESV Index: 33.70 mL/m2 Aortic Valve AoV Peak Ovi.: 1.32 m/s AO Peak Gr.: 6.97 mmHg LVOT Max P.36 mmHg AO Mean Gr.: 4.23 mmHg LVOT Mean P.12 mmHg LVOT Max V: 0.77 m/s AO V2 VTI: 26.52 cm LVOT Mean V: 0.49 m/s LEIGH (VTI): 1.80 cm2 LVOT V1 VTI: 14.64 cm Mitral Valve MV Mean Gr.: 3.01 mmHg E/A Ratio: 1.94 [place] [address] 2 D/M-MODE ECHOCARDIOGRAM Name: RILEY COTO Room: [place] [address] ADM IN .R.#: [id number] Admission: 03/05/21 Attend Phys: Stella Jewell Discharge: Date of : 41 Date of Service: 03/05/21 1514 Report #: [id number] MV Decel. Time: 151.65 ms MV E Max Ovi.: 1.51 m/s MV PHT: 43.98 ms MVA (PHT): 5.00 cm2 TDI E/Lateral E': 15.10 E/Medial E': 12.58 Medial E' Ovi.: 0.12 m/s Lateral E' Ovi.: 0.10 m/s Pulmonary Valve PV Peak Ovi.: 0.87 m/s PV Peak Gr.: 3.05 mmHg Tricuspid Valve RAP Estimate: 5.00 mmHg TR Peak Gr.: 47.97 mmHg RVSP: 52.97 mmHg PA Pressure: 52.97 mmHg Left Ventricle The left ventricle is normal size. There is normal LV segmental wall motion. Mild concentric left ventricular hypertrophy. Left ventricular systolic function is normal. LVEF is 55-60%. Transmitral Doppler flow pattern suggests restrictive physiology. Right Ventricle The right ventricle is normal size. The right ventricular systolic function is normal. Atria Left atrium is borderline dilated. The right atrium size is normal. Aortic Valve The aortic valve is normal in structure. No aortic regurgitation is present. There is no aortic valvular stenosis. Mitral Valve There is mitral annular calcification. Mitral valve leaflets are mildly thickened. Mild to moderate mitral regurgitation. Mild mitral stenosis. Tricuspid Valve The tricuspid valve is normal in structure. Mild to moderate tricuspid regurgitation. Mild to Moderate pulmonary hypertension. The RVSP is 50-[place] [address] 2 D/M-MODE ECHOCARDIOGRAM Name: RILEY COTO Room: [address] IN [facility]#: [id number] Admission: 03/05/21 Attend Phys: Stella Jewell Discharge: Date of : 41 Date of Service: 03/05/21 1514 Report #: [id number] Pulmonic Valve The pulmonary valve is normal in structure. Mild pulmonic regurgitation. Great Vessels The aortic root is normal in size. IVC is normal in size and collapses >50% with inspiration. Pericardium There is no pericardial effusion. <Conclusion> The left ventricle is normal size. Mild concentric left ventricular hypertrophy. Left ventricular systolic function is normal. LVEF is 55-60%. Transmitral Doppler flow pattern suggests restrictive physiology. There is normal LV segmental wall motion. Left atrium is borderline dilated. Mild to moderate mitral regurgitation. There is mitral annular calcification. Mitral valve leaflets are mildly thickened. Mild to moderate tricuspid regurgitation. Mild to Moderate pulmonary hypertension. The RVSP is 50-55 mmHg. Mild pulmonic regurgitation. <ELECTRONICALLY SIGNED> By: Doe Gutiérrez MD, FACC 03/05/21 151 13 13 Doe Gutiérrez MD, FACC /INF
[2021-03-05 15:59] VITALS: BP 146/74
[2021-03-05 16:13] VITALS: BP 146/74
[2021-03-05] MEDS ORDERED: METOPROLOL SUCC50 MG PO (16:55)
[2021-03-05] MEDS ORDERED: SODIUM BICARBO650 M3 PO (16:56)
[2021-03-05] MEDS ORDERED: CRESTOR40 MG PO (16:56)
[2021-03-05] MEDS ORDERED: HYDRALAZINE 5050 MG PO (16:57)
--- NOTE | 2021-03-05 17:13 | NUR ---
PT ADMITTED TO ROOM 221 VIA CART FROM ED AT APPROXIMATELY 1550. REPORT RECEIVED FROM BIANCA PASCAL. PT ORIENTED TO ROOM AND CALL LIGHT. ADMISSION ASSESSMENT AND HISTORY CHARTED. PT PHARMACY-[facility]- CALLED AND HOME MEDICATIONS RECONCILED. PT A&0X4, DENIES ANY PAIN OR SHORTNESS OF BREATH AT THIS TIME. PT STATES HE HAS SHORTNESS OF BREATH WITH EXERTION. TRACING SR ON THE ASSEMBLER AND TESTER ELECTRONICS-RATE IN THE 90'S. ON 2L NC SAT MID 90'S. UROSTOMY TO LEFT SIDE TO DEPENDENT DRAINAGE BAG BROUGHT FROM HOME. PT UP SBA TO BATHROOM. CARDIO AND NEPHRO CONSULTS IN PLACE. RIGHT UPPER ARM FISTULA NOTED. POSITIVE THRILL AND BRUIT. AT BEDSIDE AND UPDATED ON [facility] PLAN OF CARE. MEDS PER MAR. HOURLY ROUNDING OBSERVED. BED IN LOW POSITION. CALL LIGHT WITHIN REACH. WILL CONTINUE PLAN OF CARE.
[2021-03-05 19:49] VITALS: BP 169/86
[2021-03-06 00:45] VITALS: BP 162/80
[2021-03-06 04:30] LABS: ABSOLUTE BASOPHILS 0.1 thou/uL (0.0-0.2); ABSOLUTE EOSINOPHILS 0.2 thou/uL (0.0-0.7); ABSOLUTE LYMPHOCYTES 0.8 thou/uL (0.8-5.3); ABSOLUTE MONOCYTES 0.9 thou/uL (0.0-1.2); ABSOLUTE NEUTROPHILS 9.6 thou/uL (1.6-8.1); BASOPHILS 0.5 %; EOSINOPHILS 1.5 %; HEMATOCRIT 29.4 % (42.0-52.0); HEMOGLOBIN 9.5 gm/dL (14.0-18.0); LYMPHOCYTES 6.7 %; MCH 28.3 pg (26.0-34.0); MCHC 32.2 g/dL (28.0-37.0); MCV 88.1 fL (80.0-100.0); MONOCYTES 8.1 %; MPV 7.5 fl. (7.2-11.1); NUCLEATED RBCS 0 /100WBC; PLATELET COUNT* 256 thou/uL (150-400); POLYS 83.2 %; RBC 3.34 mil/uL (4.50-6.00); RDW-CV 14.7 % (10.5-14.5); WBC 11.6 thou/uL (4.0-11.0)
[2021-03-06 04:53] LABS: % SATURATION 10 % (20-39); CALCIUM 8.7 mg/dL (8.5-10.1); CREATININE 5.2 mg/dL (0.6-1.3); IRON 22 ug/dL (50-175); PHOSPHORUS* 4.5 mg/dL (2.5-4.9)
[2021-03-06 05:01] LABS: CALCIUM 8.6 mg/dL (8.5-10.1); CREATININE 5.2 mg/dL (0.6-1.3); PHOSPHORUS* 4.3 mg/dL (2.5-4.9)
[2021-03-06 05:18] VITALS: BP 167/88
--- NOTE | 2021-03-06 06:59 | NUR ---
PT IS ABLE TO COMMUNICATE HIS NEEDS TO STAFF EFFECTIVELY. HE HAS DENIED THE NEED FOR PAIN MEDICATION UP TO THIS TIME. UROSTOMY DRAIN AND BAG HAVE BEEN PATENT UP TO THIS TIME. RT ARM LIMB ALERT (FISTULA) MAINTAINED.
[2021-03-06 08:00] VITALS: BP 167/78
--- NOTE | 2021-03-06 10:19 | NUR ---
CM ASSESSMENT: PT A&O, INDEPENDENT WITH ADL'S, AND ACTIVE. PT RESIDES AT HOME WITH SPOUSE AND SHE ASSIST HIM WITH UROSTOMY CARE AT HOME. PT USES 0 DME. PT HAS PAST HX OF HH. PT HAS 0 HX OF SNF. PT HAS PAST HX OF INPT ARU IN 2012. PT CURRENTLY ON 4L O2, AND DID NOT HAVE HOME OXYGEN PRIOR TO ADMIT. CM WILL REMAIN AVAILABLE TO ASSIST AND FOLLOW NEEDED.
--- NOTE | 2021-03-06 11:10 | EKG ---
[place] [address] ELECTROCARDIOGRAM REPORT Name: RILEY COTO Room: [address] ADM IN M.R.#: [id number] Admission: 03/05/21 Attend Phys: Stella Jewell Discharge: Date of : 41 Date of Service: 03/05/211815 Report #: [id number] THIS REPORT FOR: //name// [facility] Test Date: 2021-03-05 Test Time: 18:16:39 Pat Name: RILEY COTO Department: Room: [address] Gender: M Tissue Rewinder: MAAME : 1945 Requested By: Stella Jewell Order Number: [id number] Reading MD: Nick Delaney Measurements Intervals [place] Rate: 103 P: 49 SC: 156 QRS: 33 QRSD: 78 T: -6 QT: 349 QTc: 457 Interpretive Statements Sinus tachycardia Multiform ventricular premature complexes Left atrial enlargement Borderline repolarization abnormality Compared to ECG 03/05/2021 02:07:11 Ventricular premature complex(es) now present Electronically Signed On 03-06-2021 11:10:24 CDT by Nick Delaney [email or web address] <ELECTRONICALLY SIGNED> By: Nick Delaney MD, FACC 03/06/21 1110 15 15 Nick Delaney MD, FACC /EPI
[2021-03-06 12:00] VITALS: BP 173/76
--- NOTE | 2021-03-06 16:31 | CON ---
[address] [address] CONSULTATION Name: RILEY COTO Room: [address] ADM IN M.R.#: [id number] Admission: 03/05/21 Attend Phys: Jannette Torrez Discharge: Date of : 41 Report #: [id number] THIS REPORT FOR: cc: FAM - No family physician/PCP FAM - No family physician/PCP Doe Gutiérrez MD [facility] ~ DATE OF CONSULTATION: 03/05/2021 CARDIOLOGY CONSULT INDICATION: Chest burning, shortness of breath, possible acute heart failure. HISTORY OF PRESENT ILLNESS: The patient is a 75-year-old gentleman with history of coronary artery bypass grafting at [facility] in 2003. At that time, he reports 2 or 3-vessel bypass. He had had previous intervention a few years prior. Echocardiogram here a few years ago showed normal LV systolic function. He reports having some other interventions, although the history is vague. He has ruled out for myocardial infarction with serial high sensitivity troponins. His NT-proBNP is 27,000 in the setting of stage 4-5 chronic renal insufficiency. His symptoms are vague. He reports having the flu shot and the third booster shot for the COVID vaccine a week ago and having hot flashes since then. He reports some occasional chest burning. He reports possibly some dyspnea. He is not having any prolonged symptoms and appears comfortable at the time of interview. EKG shows sinus rhythm without significant ST segment abnormality. At this point, it is difficult to tell who his primary providers are. He mentions electroplater, who no longer practicing the area. He mentions being seen primarily here, but having consultants at [facility] as well as [facility] and Counts include 234 beds at the [facility]. Outside records are pending. DOCUMENTED PAST MEDICAL HISTORY: Includes coronary artery disease with coronary artery bypass grafting as outlined above. Previous percutaneous coronary intervention at least on 2 separate occasions. He has a history of at least stage IV kidney disease. He apparently had a rather significant hospitalization in 2012, where he had a prostatectomy followed by urostomy and had a code blue and significant volume overload requiring temporary dialysis. For this, he was apparently at the [facility]. He reports a history of type 2 diabetes mellitus for which he is no longer on medication. Had an appendectomy at age of 11. He has had some previous right eye surgery. He has a history of frequent UTIs. FAMILY HISTORY: Noncontributory. SOCIAL HISTORY: The patient reports that he does not use alcohol presently. He smokes marijuana at [place] [address] CONSULTATION Name: RILEY COTO Room: [address] IN M.R.#: [id number] Admission: 03/05/21 Attend Phys: Jannette Torrez Discharge: Date of : 41 Report #: [id number] CURRENT MEDICATIONS: Metoprolol 25 mg daily, amlodipine 10 mg daily, multiple supplements. He does not take aspirin. ALLERGIES: BACTRIM, ATORVASTATIN, AMOXICILLIN, CIPROFLOXACIN, AUGMENTIN, METFORMIN. LABORATORY DATA: Reviewed. Sodium 140, potassium 3.8, chloride 107, bicarbonate 19, BUN 69, creatinine 5.3, serum glucose 171. LFTs within normal limits. High sensitivity troponins are 32, 33 and 44 sequentially. NT-proBNP was 27,397. White blood cell count 7.9, hemoglobin 9.4, platelet count 236,000. Chest x-ray shows cardiomegaly with possible mild pulmonary vascular congestion and elevated right hemidiaphragm. PHYSICAL EXAMINATION: VITAL SIGNS: Blood pressure 146/74, pulse 92 and regular. GENERAL: This is a pleasant gentleman, in no distress. HEENT: Normocephalic and atraumatic. Extraocular muscles intact. Scarring in the right cornea noted. NECK: Examination of the neck shows no jugular venous distention. I do not appreciate bruit. CHEST: Reveals clear lung gutierrez. CARDIAC: Reveals a regular rhythm without gallop or murmur. ABDOMEN: Reveals normal bowel sounds. EXTREMITIES: Shows trace ankle edema. SKIN: Dry. IMPRESSION AND RECOMMENDATIONS: 1. Atypical chest pain. The patient is ruled out for myocardial infarction. At this point, I would obtain echocardiogram to see if there is any evidence of underlying wall motion abnormality. We will request outside records to see if he has had recent stress testing. No further treatment at this time. 2. Possible mild acute heart failure, likely diastolic. Considering past noninvasive studies. We will obtain echocardiogram. He is not a candidate for diuresis with his acute on chronic renal insufficiency. 3. Renal insufficiency, acute on chronic. The patient is going to discuss with nephrology the pros and cons of dialysis. 4. Type 2 diabetes mellitus, which has been diet controlled. He does have moderately elevated glucose at this time. Recommend hemoglobin A1c. 5. Borderline hypertension. Blood pressure is relatively stable at this time. Could adjust his metoprolol succinate if required for improved blood pressure [address] [address] CONSULTATION Name: RILEY COTO Room: [address] IN M.R.#: [id number] Admission: 03/05/21 Attend Phys: Jannette Torrez Discharge: Date of : 41 Report #: [id number] control. He is not a candidate for GUILHERME or ARB due to underlying renal insufficiency. <ELECTRONICALLY SIGNED> By: Doe Gutiérrez MD, FACC 03/06/21 1631 0838 [id number] Hospital[facility]ya Gutiérrez MD, FACYolie /nt
[2021-03-06 17:39] VITALS: BP 155/77
[2021-03-06 20:24] VITALS: BP 174/90
[2021-03-07 00:20] VITALS: BP 155/76
[2021-03-07 04:00] VITALS: BP 156/71
--- NOTE | 2021-03-07 04:33 | NUR ---
PT IS ABLE TO COMMUNICATE HIS NEEDS TO STAFF EFFECTIVELY. HE HAS DENIED THE NEED FOR PAIN MEDICATION UP TO THIS TIME. UROSTOMY HAS BEEN PATENT UP TO THIS TIME. 1500 ML FLUID RESTRICTION AND STRICT I/O MAINTAINED UP TO THIS TIME.
[2021-03-07 08:00] VITALS: BP 148/71
[2021-03-07 08:04] LABS: ABSOLUTE BASOPHILS 0.1 thou/uL (0.0-0.2); ABSOLUTE EOSINOPHILS 0.3 thou/uL (0.0-0.7); ABSOLUTE LYMPHOCYTES 0.6 thou/uL (0.8-5.3); ABSOLUTE MONOCYTES 0.8 thou/uL (0.0-1.2); BASOPHILS 0.7 %; HEMATOCRIT 26.9 % (42.0-52.0); HEMOGLOBIN 8.7 gm/dL (14.0-18.0); LYMPHOCYTES 7.1 %; MCH 28.1 pg (26.0-34.0); MCHC 32.4 g/dL (28.0-37.0); MCV 86.9 fL (80.0-100.0); MONOCYTES 9.3 %; MPV 7.2 fl. (7.2-11.1); NUCLEATED RBCS 0 /100WBC; PLATELET COUNT* 235 thou/uL (150-400); POLYS 79.9 %; RBC 3.09 mil/uL (4.50-6.00); RDW-CV 14.5 % (10.5-14.5); WBC 8.8 thou/uL (4.0-11.0)
[2021-03-07 08:30] LABS: ALBUMIN 2.8 g/dL (3.4-5.0); CALCIUM 8.4 mg/dL (8.5-10.1); CREATININE 5.3 mg/dL (0.6-1.3); POTASSIUM 3.6 mmol/L (3.5-5.1); TOTAL BILIRUBIN 0.4 mg/dL (<0.1-1.0); TOTAL PROTEIN 6.7 g/dL (6.4-8.2)
[2021-03-07] MEDS ORDERED: LASIX 80 MG TAB80 MG PO (11:51)
[2021-03-07] MEDS ORDERED: CEFDINIR300 MG PO (11:52)
[2021-03-07 12:00] VITALS: BP 140/67
[2021-03-07 12:42] VITALS: BP 140/67
--- NOTE | 2021-03-07 13:28 | NUR ---
PT DC TO HOME WITH AND NURSING STAFF AT 1325 BY WHEELCHAIR. IV OUT. PT STABLE UPON DISCHARGE. PERSONAL BELONGINS SENT WITH PT
== END 2021-03-07 13:29 | disposition home or self-care (01) | DRG 291 ==
LOC: M.ERS 02:01 → M.2W 03:44 → M.TBA-ER 03:44 → M.2W 15:50
PROVIDERS: Emergency Medicine; Internal Medicine; Internal Medicine Nephrology; ADMIT Internal Medicine; ATTEND Internal Medicine
PROC: 5A0935A Assistance with Respiratory Ventilation, Less than 24 Consecutive Hours, High Flow/Velocity Cannula (ICD-10-PCS; principal; 2021-03-05)
DX: I13.0 Hypertensive heart and chronic kidney disease with heart failure and stage 1 through stage 4 chronic kidney disease, or unspecified chronic kidney disease (principal); I50.31 Acute diastolic (congestive) heart failure; J96.01 Acute respiratory failure with hypoxia; J81.0 Acute pulmonary edema; N18.4 Chronic kidney disease, stage 4 (severe); N17.9 Acute kidney failure, unspecified; Z20.822 Contact with and (suspected) exposure to COVID-19; E11.22 Type 2 diabetes mellitus with diabetic chronic kidney disease; D64.9 Anemia, unspecified; J20.9 Acute bronchitis, unspecified; Z85.46 Personal history of malignant neoplasm of prostate; Z95.5 Presence of coronary angioplasty implant and graft; Z90.49 Acquired absence of other specified parts of digestive tract; Z95.1 Presence of aortocoronary bypass graft; Z88.1 Allergy status to other antibiotic agents; Z88.2 Allergy status to sulfonamides; Z88.8 Allergy status to other drugs, medicaments and biological substances; Z79.82 Long term (current) use of aspirin; Z79.899 Other long term (current) drug therapy

== ENCOUNTER 2021-06-07 16:06 | Inpatient (IN) | payer MEDICARE, OTHER ==
[~2021-06-07] VITALS: Ht 177.8 cm; Wt 86.2 kg
[~2021-06-07 16:06] MED LIST changes: +CEFDINIR300 MG PO; +CRESTOR40 MG PO; +HYDRALAZINE 5050 MG PO; +LASIX 80 MG TAB80 MG PO; +METOPROLOL SUCC50 MG PO
[2021-06-07 16:19] VITALS: BP 177/87
[2021-06-07 17:38] LABS: ABSOLUTE EOSINOPHILS 0.1 thou/uL (0.0-0.7); ABSOLUTE LYMPHOCYTES 0.8 thou/uL (0.8-5.3); ABSOLUTE MONOCYTES 0.7 thou/uL (0.0-1.2); ABSOLUTE NEUTROPHILS 6.6 thou/uL (1.6-8.1); BASOPHILS 0.6 %; EOSINOPHILS 0.8 %; HEMATOCRIT 31.6 % (42.0-52.0); HEMOGLOBIN 10.1 gm/dL (14.0-18.0); LYMPHOCYTES 9.8 %; MCH 29.2 pg (26.0-34.0); MCHC 32.1 g/dL (28.0-37.0); MONOCYTES 8.4 %; MPV 8.1 fl. (7.2-11.1); NUCLEATED RBCS 0 /100WBC; PLATELET COUNT* 248 thou/uL (150-400); POLYS 80.4 %; RBC 3.47 mil/uL (4.50-6.00); RDW-CV 14.4 % (10.5-14.5); WBC 8.3 thou/uL (4.0-11.0)
[2021-06-07 18:23] LABS: CALCIUM 8.2 mg/dL (8.5-10.1); CREATININE 6.1 mg/dL (0.6-1.3)
[2021-06-07 18:27] LABS: ALBUMIN 3.6 g/dL (3.4-5.0); TOTAL BILIRUBIN 0.4 mg/dL (<0.1-1.0); TOTAL PROTEIN 6.9 g/dL (6.4-8.2)
[2021-06-07 19:26] LABS: URINE BILIRUBIN NEGATIVE (Negative); URINE BLOOD 1+ (Negative); URINE COLOR YELLOW; URINE GLUCOSE-RANDOM NEGATIVE (Negative); URINE KETONES NEGATIVE (Negative); URINE LEUKOCYTES-REFLEX NEGATIVE (Negative); URINE NITRITE-REFLEX NEGATIVE (Negative); URINE PROTEIN 2+ (Negative); URINE UROBILINOGEN 0.2 E.U./dl (0.2-1.0)
[2021-06-07 19:28] LABS: URINE CLARITY HAZY
[2021-06-07 19:34] LABS: BACTERIA-REFLEX None Seen /HPF (None Seen); CASTS None Seen /LPF (None Seen); CRYSTALS None Seen /LPF (None Seen); SQUAMOUS 0-3 Few /LPF (0-3); URINE RBC 0-2 Rare /HPF (0-2); URINE WBC-REFLEX None Seen /HPF (0-5)
[2021-06-07 21:40] VITALS: BP 145/89
[2021-06-08] VITALS: BP 165/75
[2021-06-08 04:00] VITALS: BP 160/63
[2021-06-08 04:01] LABS: HEMATOCRIT 27.3 % (42.0-52.0); MCH 29.5 pg (26.0-34.0); MCHC 33.1 g/dL (28.0-37.0); MCV 89.3 fL (80.0-100.0); RBC 3.06 mil/uL (4.50-6.00); RDW-CV 13.9 % (10.5-14.5); WBC 7.5 thou/uL (4.0-11.0)
[2021-06-08 04:19] LABS: ALBUMIN 3.1 g/dL (3.4-5.0); CALCIUM 8.1 mg/dL (8.5-10.1); CREATININE 5.7 mg/dL (0.6-1.3); MAGNESIUM 2.8 mg/dL (1.8-2.4); POTASSIUM 4.3 mmol/L (3.5-5.1); TOTAL BILIRUBIN 0.6 mg/dL (<0.1-1.0); TOTAL PROTEIN 6.5 g/dL (6.4-8.2)
[2021-06-08 09:23] VITALS: BP 173/74
[2021-06-08 12:27] VITALS: BP 149/65
--- NOTE | 2021-06-08 14:09 | EKG ---
[place] [address] ELECTROCARDIOGRAM REPORT Name: RILEY COTO Room: [address] ADM IN M.R.#: [id number] Admission: 06/07/21 Attend Phys: Kim Max, Discharge: Date of : 41 Date of Service: 06/07/21 171 Report #: [id number] THIS REPORT FOR: //name// [facility] ED Test Date: 2021-06-07 Test Time: 17:11:56 Pat Name: RILEY COTO Department: Room: [facility] Gender: M Security Officer Supervisor: : 1945 Requested By: Braden Daly Order Number: [id number] MD: Edd Yan Measurements Intervals [employer] Rate: 89 P: 69 DE: 149 QRS: 99 QRSD: 83 T: -7 QT: 390 QTc: 475 Interpretive Statements Sinus rhythm CHAD, consider biatrial enlargement Right axis deviation Borderline repolarization abnormality Compared to ECG 03/05/2021 18:16:39 Right-axis deviation now present Sinus tachycardia no longer present Ventricular premature complex(es) no longer present Electronically Signed On 06-08-2021 14:08:39 THAI MASSEUR by Edd Yan [email or web address] <ELECTRONICALLY SIGNED> By: Edd Yan MD, [facility] 06/08/21 1408 10 171 Edd Yan MD, [facility] /EPI
[2021-06-08 16:57] VITALS: BP 145/79
[2021-06-08 20:59] VITALS: BP 149/78
[2021-06-09 00:08] VITALS: BP 140/71
[2021-06-09 04:00] VITALS: BP 141/81
[2021-06-09 05:14] LABS: HEMATOCRIT 26.7 % (42.0-52.0); HEMOGLOBIN 8.8 gm/dL (14.0-18.0); MCH 29.4 pg (26.0-34.0); MCHC 32.8 g/dL (28.0-37.0); MCV 89.6 fL (80.0-100.0); MPV 7.8 fl. (7.2-11.1); RBC 2.98 mil/uL (4.50-6.00); WBC 6.5 thou/uL (4.0-11.0)
[2021-06-09 05:39] LABS: CALCIUM 8.4 mg/dL (8.5-10.1); CREATININE 6.2 mg/dL (0.6-1.3); MAGNESIUM 2.5 mg/dL (1.8-2.4); POTASSIUM 4.5 mmol/L (3.5-5.1)
[2021-06-09 08:21] VITALS: BP 160/85
--- NOTE | 2021-06-09 12:23 | CON ---
[address] [address] CONSULTATION Name: RILEY COTO Room: [address] IN M.R.#: [id number] Admission: 06/07/21 Attend Phys: Kim Max MD Discharge: Date of : 41 Report #: [id number] THIS REPORT FOR: cc: Physician not on staff Physician not on staff Fouzia Guillory MD ~ DATE OF CONSULTATION: 06/08/2021 NEPHROLOGY CONSULTATION REASON FOR CONSULTATION: Acute kidney injury. HISTORY OF PRESENT ILLNESS: A 75-year-old gentleman with a history of advanced chronic kidney disease, who was admitted with shortness of breath. Cardiology was consulted due to concern for CHF exacerbation. He did receive a dose of IV Lasix. He has a good urine output. He denies any shortness of breath. He is on room air. No nausea or vomiting. No reduced appetite. Otherwise has no complaints. REVIEW OF SYSTEMS: Constitutional, psych, heme, eyes, ENT, respiratory, cardiac, GI, , endocrine, all negative except as documented above. PAST MEDICAL HISTORY: Chronic kidney disease stage V, history of PE with IVC filter, history of prostatectomy with history of a urostomy, coronary artery disease with CABG, appendectomy. SOCIAL HISTORY: No tobacco. FAMILY HISTORY: Not pertinent in this 75-year-old gentleman. PHYSICAL EXAMINATION: VITAL SIGNS: Blood pressure 149/65, pulse 82, temperature 36.7. GENERAL: No acute distress. EYES: Open. EARS: Externally normal. NECK: Supple. CARDIOVASCULAR: Regular rate. No rub. LUNGS: Diminished breath sounds. ABDOMEN: Soft. MUSCULOSKELETAL: Nontender. He has a right upper arm AV fistula with positive thrill. NEUROLOGIC: Alert, oriented, no asterixis. LABORATORY DATA: White cell count 7.5, hemoglobin 9, platelets 225. Sodium 137, potassium 4.3, chloride 101, bicarbonate 23, BUN 78, creatinine 5.7, [place] [address] CONSULTATION Name: RILEY COTO Room: [address] IN [facility]#: [id number] Admission: 06/07/21 Attend Phys: Kim Max MD Discharge: Date of : 41 Report #: [id number] glucose 132, calcium 8.1, magnesium 2.8, albumin 3.1. ASSESSMENT: 1. Acute kidney injury with admission creatinine of 6.1. He has had previous admissions with elevated creatinine. In 2019, he had a creatinine of 6.9 in the setting of volume depletion and in 2016 of 5.6. 2. Chronic kidney disease stage V, followed by Dr. Dejesus at . He has a right upper arm AV fistula in place. His 02/2021 creatinine was 5.3. 3. Hypoalbuminemia. 4. Anemia. 5. History of prostate cancer and urostomy. 6. Metabolic acidosis, on sodium bicarbonate. 7. History of pulmonary embolism with IVC filter. 8. Coronary artery disease with history of coronary artery bypass graft. PLAN: Cardiology is seeing the patient. He has good urine output. Did receive a dose of IV Lasix. Renal function is improved. No indications for dialysis at this time. We will follow along with you. Thank you for requesting my opinion in the care and management of this patient. <ELECTRONICALLY SIGNED> By: Fouzia Guillory MD 06/09/21 1223 1405 [id number] Guillory MD /nt
[2021-06-09 12:27] VITALS: BP 127/52
[2021-06-09 16:30] VITALS: BP 141/75
[2021-06-09 20:29] VITALS: BP 156/77
[2021-06-10] VITALS: BP 158/71
[2021-06-10 04:00] VITALS: BP 142/67
[2021-06-10 05:06] LABS: HEMATOCRIT 27.8 % (42.0-52.0); MCH 29.1 pg (26.0-34.0); MCHC 32.4 g/dL (28.0-37.0); MCV 89.8 fL (80.0-100.0); MPV 7.8 fl. (7.2-11.1); RBC 3.09 mil/uL (4.50-6.00); RDW-CV 14.3 % (10.5-14.5); WBC 6.7 thou/uL (4.0-11.0)
[2021-06-10 05:37] LABS: ALBUMIN 3.1 g/dL (3.4-5.0); CALCIUM 8.3 mg/dL (8.5-10.1); CREATININE 6.2 mg/dL (0.6-1.3); MAGNESIUM 2.5 mg/dL (1.8-2.4); POTASSIUM 4.3 mmol/L (3.5-5.1); TOTAL BILIRUBIN 0.4 mg/dL (<0.1-1.0); TOTAL PROTEIN 6.4 g/dL (6.4-8.2)
[2021-06-10 12:31] VITALS: BP 153/78
[2021-06-10] MEDS ORDERED: CARVEDILOL12.5 MG PO (15:20)
[2021-06-10] MEDS ORDERED: PROTONIX40 M2 PO (15:20)
[2021-06-10] MEDS ORDERED: BUMETANIDE 1 MG1 M1 PO (15:20)
[2021-06-10 16:34] VITALS: BP 153/78
== END 2021-06-10 16:51 | disposition home or self-care (01) | DRG 291 ==
LOC: M.ERS 16:06 → M.2W 18:47 → M.TBA-ER 18:47 → M.2W 20:47
PROVIDERS: Emergency Medicine Emergency Medical Services; ADMIT Internal Medicine; ATTEND Internal Medicine
DX: I13.0 Hypertensive heart and chronic kidney disease with heart failure and stage 1 through stage 4 chronic kidney disease, or unspecified chronic kidney disease (principal); I50.33 Acute on chronic diastolic (congestive) heart failure; N18.4 Chronic kidney disease, stage 4 (severe); N17.9 Acute kidney failure, unspecified; N39.0 Urinary tract infection, site not specified; E88.09 Other disorders of plasma-protein metabolism, not elsewhere classified; Z20.822 Contact with and (suspected) exposure to COVID-19; I25.10 Atherosclerotic heart disease of native coronary artery without angina pectoris; D64.9 Anemia, unspecified; E11.22 Type 2 diabetes mellitus with diabetic chronic kidney disease; E78.5 Hyperlipidemia, unspecified; Z95.1 Presence of aortocoronary bypass graft; Z95.5 Presence of coronary angioplasty implant and graft; Z90.49 Acquired absence of other specified parts of digestive tract; Z88.1 Allergy status to other antibiotic agents; Z88.2 Allergy status to sulfonamides; Z88.8 Allergy status to other drugs, medicaments and biological substances; Z86.711 Personal history of pulmonary embolism; Z95.828 Presence of other vascular implants and grafts; Z85.46 Personal history of malignant neoplasm of prostate

== ENCOUNTER 2021-06-23 19:59 | Inpatient (IN) | payer MEDICARE, OTHER ==
[~2021-06-23] VITALS: Ht 177.8 cm; Wt 86.2 kg
[~2021-06-23 19:59] MED LIST changes: +BUMETANIDE 1 MG1 M1 PO; +CARVEDILOL12.5 MG PO; +PROTONIX40 M2 PO
[2021-06-23 20:08] VITALS: BP 168/95
[2021-06-23 20:57] LABS: ABSOLUTE LYMPHOCYTES 0.5 thou/uL (0.8-5.3); ABSOLUTE MONOCYTES 0.8 thou/uL (0.0-1.2); ABSOLUTE NEUTROPHILS 6.4 thou/uL (1.6-8.1); BASOPHILS 0.4 %; EOSINOPHILS 0.6 %; HEMATOCRIT 32.4 % (42.0-52.0); HEMOGLOBIN 10.2 gm/dL (14.0-18.0); LYMPHOCYTES 6.5 %; MCH 28.3 pg (26.0-34.0); MCHC 31.5 g/dL (28.0-37.0); MCV 90.1 fL (80.0-100.0); MPV 7.5 fl. (7.2-11.1); NUCLEATED RBCS 0 /100WBC; PLATELET COUNT* 243 thou/uL (150-400); POLYS 82.5 %; RBC 3.59 mil/uL (4.50-6.00); RDW-CV 14.1 % (10.5-14.5); WBC 7.7 thou/uL (4.0-11.0)
[2021-06-23 21:05] LABS: ANION GAP 14 mmol/L (7-16); BUN 78 mg/dL (7-18); CHLORIDE 101 mmol/L (98-107); CO2 23 mmol/L (21-32); CREATININE 6.2 mg/dL (0.6-1.3); GLUCOSE 183 mg/dL (70-99); POTASSIUM 4.6 mmol/L (3.5-5.1); SODIUM 138 mmol/L (136-145)
[2021-06-23 21:18] LABS: ALBUMIN 3.5 g/dL (3.4-5.0); ALKALINE PHOSPHATASE 64 U/L (46-116); LIPASE 103 U/L (73-393); MAGNESIUM 2.7 mg/dL (1.8-2.4); NT-PRO BRAIN NAT PEPTIDE > 35000 pg/mL (<300); SGOT 16 U/L (15-37); SGPT 27 U/L (30-65); TOTAL BILIRUBIN 0.5 mg/dL (<0.1-1.0); TOTAL PROTEIN 7.6 g/dL (6.4-8.2)
[2021-06-23 21:36] LABS: URINE BILIRUBIN NEGATIVE (Negative); URINE BLOOD 3+ (Negative); URINE CLARITY CLEAR; URINE COLOR YELLOW; URINE GLUCOSE-RANDOM TRACE (Negative); URINE KETONES TRACE (Negative); URINE LEUKOCYTES-REFLEX TRACE (Negative); URINE NITRITE-REFLEX NEGATIVE (Negative); URINE PROTEIN 2+ (Negative); URINE UROBILINOGEN 0.2 E.U./dl (0.2-1.0)
[2021-06-23 21:48] LABS: HYALINE CASTS 0-3 Few /LPF (None Seen); SQUAMOUS NONE SEEN /LPF (0-3)
[2021-06-23 21:49] LABS: CRYSTALS None Seen /LPF (None Seen); MUCUS None Seen strn/LPF (None Seen); URINE WBC-REFLEX 0-5 Rare /HPF (0-5)
[2021-06-23 21:50] LABS: BACTERIA-REFLEX None Seen /HPF (None Seen)
[2021-06-24 03:00] VITALS: BP 121/58
[2021-06-24 07:27] VITALS: BP 134/71
--- NOTE | 2021-06-24 11:09 | EKG ---
[place] [address] ELECTROCARDIOGRAM REPORT Name: RILEY COTO Room: [place] [address] ADM IN .R.#: [id number] Admission: 06/23/21 Attend Phys: Néstor Rose Discharge: Date of : 41 Date of Service: 06/23/212032 Report #: [id number] THIS REPORT FOR: //name// [facility] ED Test Date: 2021-06-23 Test Time: 20:33:42 Pat Name: RILEY COTO Department: Room: [facility] Gender: M Bag Maker: [place] : 1945 Requested By: Alondra Berrios Order Number: [id number] MD: Edd Yan Measurements Intervals [place] Rate: 109 P: 63 RI: 160 QRS: 52 QRSD: 76 T: -9 QT: 327 QTc: 441 Interpretive Statements Sinus tachycardia Left atrial enlargement Possible anterior infarct, old Borderline repolarization abnormality Compared to ECG 06/07/2021 17:11:56 Myocardial infarct finding now possible Sinus rate has increased Right-axis deviation no longer present Electronically Signed On 06-24-2021 11:09:28 EQUIPMENT INSPECTOR by Edd Yan [email or web address] <ELECTRONICALLY SIGNED> By: Edd Yan MD, [facility] 06/24/21 1109 32 32 Edd Yan MD, [facility] /EPI
--- NOTE | 2021-06-24 11:11 | EKG ---
[place] [address] ELECTROCARDIOGRAM REPORT Name: RILEY COTO Room: [place] [address] ADM IN .R.#: [id number] Admission: 06/23/21 Attend Phys: Néstor Rose Discharge: Date of : 41 Date of Service: 06/23/212203 Report #: [id number] THIS REPORT FOR: //name// [facility] ED Test Date: 2021-06-23 Test Time: 22:04:36 Pat Name: RILEY COTO Department: Room: [facility] Gender: M Information Services Assistant: [place] : 1945 Requested By: Alondra Berrios Order Number: [id number] MD: Edd Yan Measurements Intervals [place] Rate: 115 P: 68 [place]: 154 QRS: 62 QRSD: 79 T: -40 QT: 342 QTc: 473 Interpretive Statements Sinus tachycardia Probable left atrial enlargement Nonspecific T abnormalities, inferior leads Baseline wander in lead(s) I,III,aVR,aVL Compared to ECG 06/23/2021 20:33:42 T-wave abnormality now present Myocardial infarct finding no longer present Electronically Signed On 06-24-2021 11:11:04 SPECIAL NEEDS TUTOR by Edd Yan [email or web address] <ELECTRONICALLY SIGNED> By: Edd Yan MD, [facility] 06/24/21 1111 03 03 Edd Yan MD, [facility] /EPI
[2021-06-24 11:27] VITALS: BP 125/68
[2021-06-24 15:34] VITALS: BP 134/80
--- NOTE | 2021-06-24 16:31 | 2DMMODE ---
[place] [address] 2 D/M-MODE ECHOCARDIOGRAM Name: RILEY COTO Room: [address] ADM IN .R.#: [id number] Admission: 06/23/21 Attend Phys: Néstor Rose Discharge: Date of : 41 Date of Service: 06/24/21 1631 Report #: [id number] THIS REPORT FOR: cc: FAM - No family physician/PCP FAM - No family physician/PCP Edd Yan MD [facility] ~ APPROVED REPORT Study performed: 06/24/2021 16:09:03 EXAM: Limited 2D Echocardiogram Patient Location: In-Patient Room #: ER Status: routine BSA: 2.04 HR: 98 bpm BP: 125/68 mmHg Rhythm: NSR Other Information Study Quality: Good Indications Congestive Heart Failure Assess Ejection Fraction Left Ventricle The left ventricle is normal size. Regional wall motion abnormalities are noted with severe hypokinesis of the proximal and mid septum and hypokinesis of mid to distal anterior wall. Mild concentric left ventricular hypertrophy. Left ventricular systolic function is mildly decreased. LVEF is 40-45%. Right Ventricle The right ventricle is normal size. The right ventricular systolic function is normal. Atria The left atrium size is normal. The right atrium size is normal. Aortic Valve Mild aortic valve sclerosis. Mitral Valve [facility] [address] [place] [address] 2 D/M-MODE ECHOCARDIOGRAM Name: RILEY COTO Room: [address] IN M.R.#: [id number] Admission: 06/23/21 Attend Phys: Néstor Rose Discharge: Date of : 41 Date of Service: 06/24/21 1631 Report #: [id number] There is mitral annular calcification. Tricuspid Valve The tricuspid valve is normal in structure. Pulmonic Valve The pulmonary valve is normal in structure. Great Vessels The aortic root is normal in size. IVC is normal in size and collapses >50% with inspiration. Pericardium There is no pericardial effusion. Left pleural effusion. <Conclusion> The left ventricle is normal size. Mild concentric left ventricular hypertrophy. Left ventricular systolic function is mildly decreased. LVEF is 40-45%. The right ventricle is normal size. The left atrium size is normal. Mild aortic valve sclerosis. There is mitral annular calcification. The tricuspid valve is normal in structure. IVC is normal in size and collapses >50% with inspiration. Regional wall motion abnormalities are noted with severe hypokinesis of the proximal and mid septum and hypokinesis of mid to distal anterior wall. <ELECTRONICALLY SIGNED> By: Edd Yan MD, [facility] 06/24/211630 30 1631 Edd Yan MD, FACC /INF
[2021-06-24 16:39] VITALS: BP 134/80
[2021-06-24 23:04] VITALS: BP 165/86
[2021-06-25 04:31] LABS: ABSOLUTE LYMPHOCYTES 0.5 thou/uL (0.8-5.3); ABSOLUTE MONOCYTES 0.7 thou/uL (0.0-1.2); ABSOLUTE NEUTROPHILS 3.9 thou/uL (1.6-8.1); BASOPHILS 0.7 %; EOSINOPHILS 0.2 %; HEMATOCRIT 25.3 % (42.0-52.0); HEMOGLOBIN 8.3 gm/dL (14.0-18.0); LYMPHOCYTES 9.1 %; MCH 29.2 pg (26.0-34.0); MCHC 32.9 g/dL (28.0-37.0); MCV 88.8 fL (80.0-100.0); MONOCYTES 13.1 %; MPV 7.7 fl. (7.2-11.1); NUCLEATED RBCS 0 /100WBC; PLATELET COUNT* 169 thou/uL (150-400); POLYS 76.9 %; RBC 2.85 mil/uL (4.50-6.00); RDW-CV 13.7 % (10.5-14.5)
[2021-06-25 04:44] VITALS: BP 132/61
[2021-06-25 04:44] LABS: CALCIUM 8.2 mg/dL (8.5-10.1); CREATININE 6.4 mg/dL (0.6-1.3); POTASSIUM 4.7 mmol/L (3.5-5.1)
[2021-06-25 05:05] LABS: ALBUMIN 2.7 g/dL (3.4-5.0); CALCIUM 7.9 mg/dL (8.5-10.1); CREATININE 6.4 mg/dL (0.6-1.3); MAGNESIUM 2.6 mg/dL (1.8-2.4); PHOSPHORUS* 8.2 mg/dL (2.5-4.9); POTASSIUM 4.7 mmol/L (3.5-5.1)
[2021-06-25 08:00] VITALS: BP 128/68
[2021-06-25 12:00] VITALS: BP 122/61
[2021-06-25 20:14] VITALS: BP 136/62
[2021-06-25 23:25] VITALS: BP 129/62
[2021-06-26 00:36] VITALS: BP 139/71
[2021-06-26 02:06] LABS: HEPATITIS B SURFACE AG Negative (Negative)
[2021-06-26 04:37] VITALS: BP 134/77
[2021-06-26 09:00] VITALS: BP 133/68
--- NOTE | 2021-06-26 11:25 | EKG ---
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1945 Requested By: Rasheed Kasper Order Number: [id number] Reading MD: Edd Yan Measurements Intervals [place] Rate: 92 P: 39 MI: 142 QRS: 43 QRSD: 83 T: -6 QT: 382 QTc: 473 Interpretive Statements Sinus rhythm Atrial premature complexes Probable left atrial enlargement Borderline repolarization abnormality Compared to ECG 06/23/2021 22:04:36 Atrial premature complex(es) now present Sinus tachycardia no longer present T-wave abnormality no longer present Electronically Signed On 06-26-2021 11:25:09 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
[2021-06-26 11:50] LABS: ABSOLUTE EOSINOPHILS 0.2 thou/uL (0.0-0.7); ABSOLUTE LYMPHOCYTES 0.4 thou/uL (0.8-5.3); ABSOLUTE MONOCYTES 0.6 thou/uL (0.0-1.2); ABSOLUTE NEUTROPHILS 3.8 thou/uL (1.6-8.1); BASOPHILS 0.8 %; HEMATOCRIT 26.4 % (42.0-52.0); HEMOGLOBIN 8.7 gm/dL (14.0-18.0); LYMPHOCYTES 7.2 %; MCH 29.1 pg (26.0-34.0); MCHC 32.8 g/dL (28.0-37.0); MCV 88.5 fL (80.0-100.0); MONOCYTES 11.7 %; NUCLEATED RBCS 0 /100WBC; PLATELET COUNT* 171 thou/uL (150-400); POLYS 76.3 %; RBC 2.99 mil/uL (4.50-6.00); RDW-CV 13.6 % (10.5-14.5); WBC 4.9 thou/uL (4.0-11.0)
[2021-06-26 12:06] LABS: ALBUMIN 2.7 g/dL (3.4-5.0); CALCIUM 8.1 mg/dL (8.5-10.1); CREATININE 5.7 mg/dL (0.6-1.3); POTASSIUM 3.6 mmol/L (3.5-5.1); TOTAL BILIRUBIN 0.4 mg/dL (<0.1-1.0); TOTAL PROTEIN 6.4 g/dL (6.4-8.2)
[2021-06-26 12:07] LABS: % SATURATION 16 % (20-39); IRON 31 ug/dL (50-175)
[2021-06-26 17:13] VITALS: BP 147/68
[2021-06-26 20:00] VITALS: BP 142/61
[2021-06-27] VITALS: BP 131/59
[2021-06-27 04:00] VITALS: BP 132/56
[2021-06-27 06:24] LABS: CALCIUM 8.2 mg/dL (8.5-10.1); POTASSIUM 3.5 mmol/L (3.5-5.1)
[2021-06-27 06:29] LABS: CREATININE 4.2 mg/dL (0.6-1.3)
[2021-06-27 07:00] VITALS: BP 147/65
[2021-06-27 12:00] VITALS: BP 161/83
[2021-06-27 16:30] VITALS: BP 135/61
[2021-06-27 20:00] VITALS: BP 131/63
[2021-06-28 00:31] VITALS: BP 124/56
[2021-06-28 04:01] LABS: HEMATOCRIT 26.2 % (42.0-52.0); HEMOGLOBIN 8.7 gm/dL (14.0-18.0); MCH 28.7 pg (26.0-34.0); MCHC 33.1 g/dL (28.0-37.0); MCV 86.5 fL (80.0-100.0); MPV 7.7 fl. (7.2-11.1); RBC 3.03 mil/uL (4.50-6.00); RDW-CV 13.1 % (10.5-14.5); WBC 4.1 thou/uL (4.0-11.0)
[2021-06-28 04:19] VITALS: BP 130/68
[2021-06-28 04:19] LABS: CALCIUM 7.9 mg/dL (8.5-10.1); CREATININE 3.3 mg/dL (0.6-1.3); POTASSIUM 3.4 mmol/L (3.5-5.1)
[2021-06-28 08:00] VITALS: BP 100/71
[2021-06-28 11:12] VITALS: BP 142/67
[2021-06-28 15:51] VITALS: BP 144/68
[2021-06-28 20:00] VITALS: BP 159/81
[2021-06-29 00:33] VITALS: BP 139/63
[2021-06-29 04:34] VITALS: BP 145/75
[2021-06-29 11:49] VITALS: BP 141/67
--- NOTE | 2021-06-29 13:49 | CON ---
[address] [address] CONSULTATION Name: RILEY COTO Room: [address] IN M.R.#: [id number] Admission: 06/23/21 Attend Phys: Jannette Peterson Discharge: Date of : 41 Report #: [id number] THIS REPORT FOR: cc: FAM - No family physician/PCP FAM - No family physician/PCP Fouzia Guillory MD ~ DATE OF CONSULTATION: 06/24/2021 NEPHROLOGY CONSULTATION CONSULTING PHYSICIAN: Néstor Rose DO REASON FOR CONSULTATION: Chronic kidney disease. HISTORY OF PRESENT ILLNESS: A 75-year-old gentleman who comes in with complaints of shortness of breath and increasing swelling that has been going on for at least a few days, if not a week. He has had some decreased appetite, but no significant change. No nausea or vomiting. No chest pain. He has not seen his outpatient passenger car inspector since being discharged last month. He was due to see her this week. He was discharged last month with a creatinine of 6.2. It is similar here. Denies any extra salt or fluid ingestion. Otherwise, has no complaints. REVIEW OF SYSTEMS: Constitutional, psych, heme, eyes, ENT, respiratory, cardiac, GI, , endocrine, all negative except as documented above. PAST MEDICAL HISTORY: Chronic kidney disease, coronary artery disease with history of coronary artery bypass graft, diabetes type 2, history of prostatectomy. FAMILY HISTORY: Nonpertinent for this 75-year-old gentleman. SOCIAL HISTORY: No tobacco. CURRENT MEDICATIONS: Reviewed. PHYSICAL EXAMINATION: VITAL SIGNS: Blood pressure is 125/68, pulse 86, respirations 17, temperature 36.6. GENERAL: No acute distress. EYES: Open. EARS: Externally normal. NECK: Supple. CARDIOVASCULAR: Regular rate. No rub. LUNGS: [place] [address] CONSULTATION Name: RILEY COTO Room: [address]#: [id number] Admission: 06/23/21 Attend Phys: Jannette Peterson Discharge: Date of : 41 Report #: [id number] ABDOMEN: Soft. MUSCULOSKELETAL: Nontender. EXTREMITIES: Positive edema. PSYCHIATRIC: Awake, alert. NEUROLOGIC: No asterixis. LABORATORY DATA: White cell count 7.7, hemoglobin 10.2, platelets 243. Sodium 138, potassium 4.6, chloride 101, bicarbonate 23, BUN 78, creatinine 6.2, glucose 183, calcium 9, magnesium 2.7, albumin 3.5. ASSESSMENT AND PLAN: 1. Chronic kidney disease stage 5, progressive chronic kidney disease. His recent discharge creatinine was 6.2, may be his new baseline. He usually runs in the 5-6 range and is followed by Dr. Dejesus at . He has a right upper extremity AV fistula in place with positive thrill and bruit. 2. Hypoalbuminemia. 3. Anemia. 4. History of prostate cancer and urostomy. 5. Metabolic acidosis, on sodium bicarbonate. 6. History of pulmonary embolism with IVC filter. 7. Coronary artery disease with history of coronary artery bypass graft. 8. Pulmonary edema and volume overload on chest x-ray. PLAN: Start Lasix drip. Discontinue sodium bicarbonate. Cardiology is seeing the patient as well. He may need to initiate dialysis during his hospital stay. We will see how he does with a Lasix drip. He understands and agrees to initiate dialysis should it be necessary. We will assess again in the morning. Discussed with his as well. Thank you for requesting my opinion in the care and management of this patient. <ELECTRONICALLY SIGNED> By: Fouzia Guillory MD 06/29/21 1349 [id number] [id number] Guillory MD /nt
[2021-06-29 16:00] VITALS: BP 170/75
[2021-06-29] MEDS ORDERED: IMDUR 30 MG TAB30 M1 PO (16:29)
[2021-06-29 17:10] VITALS: BP 141/67
[2021-06-29 20:00] VITALS: BP 139/69
[2021-06-30] VITALS: BP 146/65
[2021-06-30 04:00] VITALS: BP 144/66
[2021-06-30 08:00] VITALS: BP 151/83
[2021-06-30 10:19] VITALS: BP 141/67
[2021-06-30 12:00] VITALS: BP 123/70
[2021-06-30 20:00] VITALS: BP 134/63
[2021-06-30 20:30] LABS: CALCIUM 8.2 mg/dL (8.5-10.1); POTASSIUM 4.3 mmol/L (3.5-5.1)
[2021-06-30 20:31] LABS: CREATININE 5.1 mg/dL (0.6-1.3)
[2021-07-01 04:00] VITALS: BP 131/65
[2021-07-01 13:02] VITALS: BP 153/69
[2021-07-01 17:41] VITALS: BP 111/65
[2021-07-01 21:30] VITALS: BP 124/64
[2021-07-02] VITALS (7 sets, daily range): BP systolic 120–143; BP diastolic 45–68
[2021-07-03] VITALS (7 sets, daily range): BP systolic 123–158; BP diastolic 59–77
[2021-07-03 05:22] LABS: HEMATOCRIT 26.9 % (42.0-52.0); HEMOGLOBIN 8.8 gm/dL (14.0-18.0); MCH 28.7 pg (26.0-34.0); MCHC 32.6 g/dL (28.0-37.0); MPV 7.6 fl. (7.2-11.1); RBC 3.06 mil/uL (4.50-6.00); RDW-CV 13.8 % (10.5-14.5)
[2021-07-03 05:49] LABS: CALCIUM 8.6 mg/dL (8.5-10.1); CREATININE 5.3 mg/dL (0.6-1.3); POTASSIUM 3.8 mmol/L (3.5-5.1)
== END 2021-07-03 12:15 | disposition home or self-care (01) | DRG 280 ==
LOC: M.ERS 19:59 → M.TBA-ER 22:37 → M.ICU 06-24 16:26 → M.2W 06-24 22:50
PROVIDERS: Emergency Medicine; Internal Medicine; Internal Medicine Nephrology; ADMIT Internal Medicine; ATTEND Internal Medicine
PROC: 5A0935A Assistance with Respiratory Ventilation, Less than 24 Consecutive Hours, High Flow/Velocity Cannula (ICD-10-PCS; principal; 2021-06-24)
PROC: 5A0935A Assistance with Respiratory Ventilation, Less than 24 Consecutive Hours, High Flow/Velocity Cannula (ICD-10-PCS; 2021-06-25)
PROC: 5A1D70Z Performance of Urinary Filtration, Intermittent, Less than 6 Hours Per Day (ICD-10-PCS; 2021-06-25)
PROC: 5A0935A Assistance with Respiratory Ventilation, Less than 24 Consecutive Hours, High Flow/Velocity Cannula (ICD-10-PCS; 2021-06-26)
DX: I13.2 Hypertensive heart and chronic kidney disease with heart failure and with stage 5 chronic kidney disease, or end stage renal disease (principal); I21.4 Non-ST elevation (NSTEMI) myocardial infarction; J96.01 Acute respiratory failure with hypoxia; I50.23 Acute on chronic systolic (congestive) heart failure; N18.6 End stage renal disease; N17.9 Acute kidney failure, unspecified; D64.9 Anemia, unspecified; I25.10 Atherosclerotic heart disease of native coronary artery without angina pectoris; Z85.46 Personal history of malignant neoplasm of prostate; E11.22 Type 2 diabetes mellitus with diabetic chronic kidney disease; Z95.1 Presence of aortocoronary bypass graft; Z20.822 Contact with and (suspected) exposure to COVID-19; Z88.8 Allergy status to other drugs, medicaments and biological substances; I25.5 Ischemic cardiomyopathy; Z86.711 Personal history of pulmonary embolism; Z79.01 Long term (current) use of anticoagulants; Z90.49 Acquired absence of other specified parts of digestive tract

== ENCOUNTER 2021-07-09 04:39 | Inpatient (IN) | payer MEDICARE, OTHER ==
[~2021-07-09] VITALS: Ht 180.3 cm; Wt 79.4 kg
[~2021-07-09 04:39] MED LIST changes: +IMDUR 30 MG TAB30 M1 PO
[2021-07-09 04:49] VITALS: BP 148/75
[2021-07-09 06:09] LABS: ABSOLUTE BASOPHILS 0.1 thou/uL (0.0-0.2); ABSOLUTE EOSINOPHILS 0.3 thou/uL (0.0-0.7); ABSOLUTE LYMPHOCYTES 0.9 thou/uL (0.8-5.3); ABSOLUTE MONOCYTES 0.8 thou/uL (0.0-1.2); ABSOLUTE NEUTROPHILS 7.7 thou/uL (1.6-8.1); BASOPHILS 0.7 %; EOSINOPHILS 2.6 %; HEMATOCRIT 31.4 % (42.0-52.0); HEMOGLOBIN 10.4 gm/dL (14.0-18.0); LYMPHOCYTES 9.3 %; MCHC 33.1 g/dL (28.0-37.0); MCV 87.5 fL (80.0-100.0); MONOCYTES 7.9 %; MPV 7.2 fl. (7.2-11.1); NUCLEATED RBCS 0 /100WBC; PLATELET COUNT* 381 thou/uL (150-400); POLYS 79.5 %; RBC 3.59 mil/uL (4.50-6.00); RDW-CV 14.1 % (10.5-14.5); WBC 9.7 thou/uL (4.0-11.0)
[2021-07-09 06:43] LABS: CALCIUM 8.8 mg/dL (8.5-10.1); CREATININE 7.2 mg/dL (0.6-1.3); POTASSIUM 4.8 mmol/L (3.5-5.1)
[2021-07-09 06:47] LABS: ALBUMIN 3.4 g/dL (3.4-5.0); TOTAL BILIRUBIN 0.7 mg/dL (<0.1-1.0); TOTAL PROTEIN 7.5 g/dL (6.4-8.2)
[2021-07-09 09:10] VITALS: BP 134/65
[2021-07-09 20:00] VITALS: BP 136/58
[2021-07-10 03:41] VITALS: BP 115/56
[2021-07-10 05:59] VITALS: BP 118/62
[2021-07-10 08:00] VITALS: BP 128/58
[2021-07-10 08:32] LABS: ABSOLUTE BASOPHILS 0.1 thou/uL (0.0-0.2); ABSOLUTE EOSINOPHILS 0.3 thou/uL (0.0-0.7); ABSOLUTE LYMPHOCYTES 0.9 thou/uL (0.8-5.3); ABSOLUTE MONOCYTES 0.7 thou/uL (0.0-1.2); ABSOLUTE NEUTROPHILS 4.4 thou/uL (1.6-8.1); BASOPHILS 1.2 %; EOSINOPHILS 5.1 %; LYMPHOCYTES 14.5 %; MCH 28.1 pg (26.0-34.0); MCHC 32.3 g/dL (28.0-37.0); MCV 87.1 fL (80.0-100.0); MONOCYTES 10.9 %; MPV 6.9 fl. (7.2-11.1); NUCLEATED RBCS 0 /100WBC; PLATELET COUNT* 315 thou/uL (150-400); POLYS 68.3 %; RBC 3.56 mil/uL (4.50-6.00); WBC 6.5 thou/uL (4.0-11.0)
[2021-07-10 08:44] LABS: CALCIUM 8.6 mg/dL (8.5-10.1); POTASSIUM 4.4 mmol/L (3.5-5.1)
[2021-07-10 08:45] LABS: CREATININE 5.3 mg/dL (0.6-1.3)
--- NOTE | 2021-07-10 09:27 | EKG ---
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1945 Requested By: Kim Max Order Number: [id number] Susie MD: Edd Yan Measurements Intervals [place] Rate: 87 P: 73 GA: 148 QRS: 33 QRSD: 77 T: -19 QT: 377 QTc: 454 Interpretive Statements Sinus rhythm Probable left atrial enlargement Probable left ventricular hypertrophy Borderline T abnormalities, inferior leads Compared to ECG 06/25/2021 18:59:50 T-wave abnormality is slightly more prominent Atrial premature complex(es) no longer present Electronically Signed On 07-10-2021 9:27:18 LEATHER 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
[2021-07-10 12:04] VITALS: BP 120/57
[2021-07-10 12:33] VITALS: BP 120/57
--- NOTE | 2021-07-11 08:54 | CON ---
[address] [address] CONSULTATION Name: RILEY COTO Room: [address] IN .R.#: [id number] Admission: 07/09/21 Attend Phys: Kim Max MD Discharge: 07/10/21 Date of : 41 Report #: [id number] THIS REPORT FOR: cc: Physician not on staff Physician not on staff Aaron Isaacs MD ~ DATE OF CONSULTATION: 07/10/2021 REQUESTING PHYSICIAN: ____ REASON FOR CONSULTATION: End-stage renal disease. The patient needs dialysis. HISTORY OF PRESENT ILLNESS: The patient is a 75-year-old gentleman admitted with complaints of abdominal pain. He has a normal dialysis days are Tuesday, , Saturdays, so he was dialyzed yesterday. He also has history of intraabdominal surgery with ileal conduit. He history of anemia and history of cardiomyopathy. SOCIAL HISTORY: No tobacco, no alcohol abuse. FAMILY HISTORY: No evidence of renal disease. MEDICATIONS: Reviewed. REVIEW OF SYSTEMS: Feels better today. He is able to tolerate p.o. intake at breakfast and probably going to go home today. PHYSICAL EXAMINATION: GENERAL: Awake, alert, oriented, no acute distress. VITAL SIGNS: Blood pressure 128/58, heart rate is 81, afebrile. HEENT: Pupils are round. NECK: Supple. LUNGS: Clear. CARDIOVASCULAR: Regular rate. ABDOMEN: Soft. EXTREMITIES: Lower extremities, no edema. He has a right brachiocephalic fistula in place. ASSESSMENT: 1. End-stage renal disease, dialysis on Tuesday, , Tuesday schedule. 2. Abdominal pain, possible ileus, resolving. 3. Hypertension. 4. Anemia. [address] [address] CONSULTATION Name: RILEY COTO Room: [address]#: [id number] Admission: 07/09/21 Attend Phys: Kim Max MD Discharge: 07/10/21 Date of : 41 Report #: [id number] PLAN: Continue dialysis on Tuesday, , Tuesday schedule. If he is well enough that he could be discharged today, but I will leave it to primary team. <ELECTRONICALLY SIGNED> By: Aaron Isaacs MD 07/11/21 0854 1032 1421Aclaudia Isaacs MD /nt
== END 2021-07-10 13:42 | disposition home or self-care (01) | DRG 388 ==
LOC: M.ERS 04:39 → M.2W 07:04 → M.TBA-ER 07:04 → M.2W 09:20
PROVIDERS: Personal Emergency Response Attendant; Student in an Organized Health Care Education/Training Program; ADMIT Internal Medicine; ATTEND Internal Medicine
DX: K56.600 Partial intestinal obstruction, unspecified as to cause (principal); N18.6 End stage renal disease; I12.0 Hypertensive chronic kidney disease with stage 5 chronic kidney disease or end stage renal disease; K56.7 Ileus, unspecified; K59.00 Constipation, unspecified; D64.9 Anemia, unspecified; E11.22 Type 2 diabetes mellitus with diabetic chronic kidney disease; Z20.822 Contact with and (suspected) exposure to COVID-19; Z90.79 Acquired absence of other genital organ(s); Z79.899 Other long term (current) drug therapy; Z87.440 Personal history of urinary (tract) infections; Z79.84 Long term (current) use of oral hypoglycemic drugs; Z90.49 Acquired absence of other specified parts of digestive tract; Z95.5 Presence of coronary angioplasty implant and graft; Z93.6 Other artificial openings of urinary tract status; Z85.46 Personal history of malignant neoplasm of prostate; Z95.1 Presence of aortocoronary bypass graft; Z88.1 Allergy status to other antibiotic agents; Z88.2 Allergy status to sulfonamides; Z88.8 Allergy status to other drugs, medicaments and biological substances; Z99.2 Dependence on renal dialysis